=== PATIENT | female | born 1945 | race Caucasian/White ===

== ENCOUNTER 2016-12-19 01:21 | Inpatient (IN) | payer MEDICARE, OTHER ==
[2016-12-19] MEDS ORDERED: PIPERACILLIN-TAZOBACTAM 3.375 GM in DEXTROSE/WATER 1 50ML.BAG IVPB STA (01:45)
[2016-12-19 02:15] LABS: Anisocytosis Slight; Appearance,Urine Cloudy (Clear); Bacteria,Urine Occasional /hpf; Bilirubin,Urine Negative (Negative); CH 28.9; CHCM 30.9; Glucose,Urine (UA) Negative (Negative); HCT 40.3 % (34.0-46.0); HDW 2.72; HGB 12.3 gm/dL (11.4-16.0); Hypochromasia Moderate; Ketones,Urine Negative (Negative); Leukocyte Esterase,Urine Large (Negative); MCH 28.6 pg (25.0-35.0); MCHC 30.6 g/dL (31.0-37.0); MCV 93.7 fL (80.0-100.0); Mean Platelet Volume 7.2; Mucus,Urine Rare /hpf; Nitrite,Urine Negative (Negative); Particle Count 9802; Protein,Urine Negative (Negative); RBC,Urine 1 /hpf (0-5); RDW 16.8 % (11.5-15.5); Specific Gravity,Urine 1.014 (1.001-1.035); Squamous Epithelial Cell,Urine 1 /hpf (0-4); UA Billing (MACRO vs. MICRO) MICRO; Urobilinogen,Urine <2.0 mg/dL (<2.0); WBC,Urine 17 /hpf (0-5)
[2016-12-19 02:18] LABS: WBC 30.2 k/uL (3.8-10.6)
[2016-12-19 02:19] LABS: Calcium 8.8 mg/dL (8.4-10.2); Potassium 4.5 mmol/L (3.5-5.1); Total Bilirubin 0.4 mg/dL (0.2-1.3); Total Protein 4.5 g/dL (6.3-8.2)
[2016-12-19 02:22] LABS: INR 1.5 (<1.1); Partial Thromboplastin Time 34.3 sec (22.0-30.0); Prothrombin Time 14.4 sec (9.0-12.0)
[2016-12-19] MEDS: SODIUM CHLORIDE 0.9% 500 ML IV SCH ×2 (02:35→07:56)
[2016-12-19 02:40] LABS: Add Differential Manual Differential
[2016-12-19 02:41] LABS: Manual Review Performed; Nucleated Red Blood Cells 0 /100 WBC (0-0); Total Cells Counted 100
--- NOTE | 2016-12-19 02:43 | XR ---
EXAM: XR Chest, 1 View. CLINICAL HISTORY: Reason: Fever TECHNIQUE: Frontal view of the chest. COMPARISON: Chest x-ray 06/26/2016. FINDINGS: Lungs: Right infrahilar opacity; differential includes prominent vessels, pneumonia, and atelectasis. Low lung volumes. Pleural space: Unremarkable. No pneumothorax. Heart: Unremarkable. No cardiomegaly. Mediastinum: Unremarkable. Bones/joints: Osteopenia. Tubes, lines and devices: Redemonstrated Port-A-Cath with tortuous course of the catheter and terminating in the SVC. IMPRESSION: 1. Right infrahilar opacity; differential includes prominent vessels, pneumonia, and atelectasis. 2. Low lung volumes. 3. Redemonstrated Port-A-Cath with tortuous course of the catheter and terminating in the SVC.
[2016-12-19] MEDS ORDERED: SODIUM CHLORIDE 0.9% 1,000 ML IV ONE ×2 (03:07)
[2016-12-19] MEDS ORDERED: LEVOFLOXACIN 750MG-D5W PMX 750 MG in DEXTROSE/WATER 1 150ML.BAG IVPB SCH (06:45)
[2016-12-19 07:45] VITALS: BMI 39.0
--- NOTE | 2016-12-19 08:44 | ED ---
Altered Mental Status HPI - General Chief Complaint: Altered Mental Status Stated Complaint: Confusion Time Seen by Provider: 12/19/16 01:30 Source: old records reviewed Mode of arrival: EMS Limitations: altered mental status - History of Present Illness Initial Comments: This patient is a 71-year-old woman sent from long term because she has her reportedly become less oriented and less responsive. The symptoms been going on over the past night or so. They report that the patient is usually oriented to person and place, however the course of tonight she was not able to answer questions and she was only oriented to person. detention staff also noted that the patient has increased erythema to her left leg extending up towards her pelvis. The patient appears to be demented or delirious and not able to give much history. She does answer no when asked if she is having any pain or difficulty breathing. MD Complaint: altered mental status Onset/Timin -: days(s) Severity: moderate Consistency of Symptoms: getting worse Context: history of similar presentation Associated Symptoms: rash - Related Data Home Medications Medication Instructions Recorded Confirmed Omeprazole [PriLOSEC] 20 mg PO DAILY 11/06/14 12/19/16 Multivitamins, Thera [Multivitamin 1 tab PO HS 03/13/15 12/19/16 (formulary)] Acetaminophen [Tylenol] 650 mg PO Q4H PRN 04/22/15 12/19/16 Rivaroxaban [Xarelto] 15 mg PO W/SUPPER 06/03/15 12/19/16 Artificial Tears-Hypromellose 1 drops BOTH EYES TID PRN 09/15/15 12/19/16 [Artificial Tear Drops] Citalopram Hydrobromide [CeleXA] 20 mg PO DAILY 01/31/16 12/19/16 Folic Acid 1 mg PO HS 01/31/16 12/19/16 Furosemide [Lasix] 40 mg PO DAILY 01/31/16 12/19/16 Midodrine HCl [ProAmatine] 5 mg PO DAILY 01/31/16 12/19/16 Sucralfate [Carafate] 1 gm PO [facility] 01/31/16 12/19/16 Levothyroxine Sodium [Synthroid] 175 mcg PO DAILY 02/26/16 12/19/16 Allopurinol [Zyloprim] 300 mg PO DAILY 06/26/16 12/19/16 Calcitriol [Rocaltrol] 0.25 mcg PO SA 06/26/16 12/19/16 Ergocalciferol [Vitamin D2 50,000 unit PO WE 06/26/16 12/19/16 (DRISDOL)] Ferrous Sulfate [Iron (65 MG 325 mg PO TID 06/26/16 12/19/16 Elemental)] Magnesium Oxide [Mag-Ox] 400 mg PO HS 06/26/16 12/19/16 Benzonatate [Tessalon Perles] 100 mg PO Q8H PRN 12/19/16 12/19/16 Fluticasone Nasal [place] [Flonase 1 spr EA NOSTRIL DAILY 12/19/16 12/19/16 Nasal [place]] Lactulose 20 gm PO HS 12/19/16 12/19/16 Menthol [Biofreeze] 1 applic TOPICAL TID 12/19/16 12/19/16 Sennosides [Senna] 17.2 mg PO HS 12/19/16 12/19/16 prednisoLONE ACETATE [Pred Forte 1 drop RIGHT EYE DAILY 12/19/16 12/19/16 1%] Previous Rx's Medication Instructions Recorded Cephalexin [Keflex] 500 mg PO Q8HR #30 cap 12/23/16 Nystatin 100,000 Unit/ml Susp 50,000,000 units PO QID #0 12/23/16 [Mycostatin Oral Susp] Allergies Allergy/AdvReac Type Severity Reaction Status Date / Time vancomycin Allergy Anaphylaxis Verified 12/19/16 06:59 Review of Systems ROS Statement: Those systems with pertinent positive or pertinent negative responses have been documented in the HPI. ROS Other: All systems not noted in ROS Statement are negative. Limitations: ROS unobtainable due to patients medical condition Past Medical History Past Medical History: Atrial Fibrillation, Chest Pain / Angina, Dementia, Eye Disorder, GERD/Reflux, Osteoarthritis (OA), Renal Disease, Thyroid Disorder, Vascular Disorder Additional Past Medical History / Comment(s): Chronic atrial fibrillation, dementia, osteoarthritis, chronic hypercapnic respiratory failure, morbid obesity, chronic lymphedema of the lower extremities with recurrent episodes of cellulitis, previous history of C. diff colitis, congestion heart failure, peripheral vascular disease, chronic hypotension, recurrent urine checked infections, osteoarthritis, the patient has a right-sided Mediport, paroxysmal atrial fibrillation, previous urine checked infection including infections with enterococcus, pseudomonas, Morganella morganii, E. coli, VRE. 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 History of Any Multi-Drug Resistant Organisms: MRSA, VRE Date of last positivie culture/infection: 12/03/2014-VRE; 09/28/2012-MRSA MDRO Source:: Urine-VRE; Abd Wound-MRSA Past Surgical History: Appendectomy, Back Surgery, Tonsillectomy Additional Past Surgical History / Comment(s): back surgery with laminectomy 2 , umbilical hernia repair in September 2012 followed by cellulitis and nonhealing wounds to the area, mediport R chest. Past Anesthesia/Blood Transfusion Reactions: No Reported Reaction Past Psychological History: Depression Additional Psychological History / Comment(s): This patient is . She is currently at the [facility]. She has a legal preetiAnahi Ashbyo [phone]. She gets up into a wheelchair with assistance. She needs assist with ADLs. She feeds herself. She has one son and one [id number] both they live in [place]. No travel hx, no pets, no service. Smoking Status: Never smoker Past Alcohol Use History: None Reported Additional Past Alcohol Use History / Comment(s): Patient is a lifelong nonsmoker. She denies any alcohol use or abuse. Past Drug Use History: None Reported - Past Family History Son(s) Family Medical History: Cancer Additional Family Medical History / Comment(s): Pt states her son has pelvic cancer with mets. Father History Unknown: Yes Family Medical History: Coronary Artery Disease (CAD) Additional Family Medical History / Comment(s): Father at 93 yrs of age. Mother History Unknown: Yes Family Medical History: Respiratory Disorder Additional Family Medical History / Comment(s): Mother in her 80's of a rare lung dx. General Exam Limitations: altered mental status General appearance: alert, obese Head exam: Present: atraumatic, normocephalic Eye exam: Present: normal appearance ENT exam: Present: mucous membranes dry Neck exam: Present: normal inspection Respiratory exam: Present: rhonchi. Absent: respiratory distress, wheezes, rales, stridor, chest wall tenderness Cardiovascular Exam: Present: regular rate, normal rhythm, normal heart sounds. Absent: systolic murmur, diastolic murmur, rubs, gallop GI/Abdominal exam: Present: soft. Absent: distended, tenderness, guarding, rebound, mass, pulsatile mass, hernia Extremities exam: Present: normal capillary refill, pedal edema, other (There is erythema and warmth throughout the left leg extending up to the abdominal wall on the left side.). Absent: normal inspection, calf tenderness Back exam: Present: normal inspection Neurological exam: Present: alert, other (Patient is able to only perform simple one step commands, no focalizing neurologic deficit). Absent: oriented X3 (Patient is oriented only to person), motor sensory deficit Skin exam: Present: warm, dry, intact, erythema. Absent: rash Course Vital Signs 12/19/16 12/19/16 12/19/16 01:25 03:23 04:55 Temperature 97.7 F 96.7 F L Pulse Rate 97 83 75 Pulse Rate [ Pulse Oximetery ] Respiratory 18 24 20 Rate Blood Pressure 108/57 94/53 99/56 Blood Pressure [Right Arm] O2 Sat by Pulse 99 97 97 Oximetry 12/19/16 12/19/16 12/19/16 06:54 07:10 07:20 Temperature 99.3 F 97.1 F L Pulse Rate 75 Pulse Rate [ 77 Pulse Oximetery ] Respiratory 20 17 Rate Blood Pressure 110/58 Blood Pressure 101/57 [Right Arm] O2 Sat by Pulse 96 98 Oximetry Medical Decision Making - Medical Decision Making Patient is 71-year-old woman sent from long term to be evaluated for mental status change. She does appear to have extensive left leg cellulitis, possibly sepsis as well with lactic acid elevated. Patient received fluid bolus and started on antibiotics. She does list a vancomycin ALLERGY. Patient be admitted case discussed with hospitalist and will have ID consult. The review of her previous cultures reveals that she has had previous E. Faecalis that should be susceptible to the initial antibiotic choice of Zosyn. - Lab Data Result diagrams: 12/22/16 10:17 12/22/16 10:17 Lab Results 12/19/16 12/19/16 12/19/16 Range/Units 02:00 02:00 02:00 WBC 30.2 H* (3.8-10.6) k/uL RBC 4.30 (3.80-5.40) m/uL Hgb 12.3 (11.4-16.0) gm/dL Hct 40.3 (34.0-46.0) % MCV 93.7 (80.0-100.0) fL MCH 28.6 (25.0-35.0) pg MCHC 30.6 L (31.0-37.0) g/dL RDW 16.8 H (11.5-15.5) % Plt Count 305 (150-450) k/uL Neutrophils % (Manual) 96.0 % Band Neutrophils % 1.0 % Lymphocytes % (Manual) 1.0 % Monocytes % (Manual) 2.0 % Neutrophils # (Manual) 29.3 H (1.3-7.7) k/uL Lymphocytes # (Manual) 0.3 L (1.0-4.8) k/uL Monocytes # (Manual) 0.6 (0-1.0) k/uL Nucleated RBCs 0 (0-0) /100 WBC Manual Slide Review Performed Hypochromasia Moderate Poikilocytosis (manual Present Anisocytosis Slight PT (9.0-12.0) sec INR (<1.1) APTT (22.0-30.0) sec Sodium 133 L (137-145) mmol/L Potassium 4.5 (3.5-5.1) mmol/L Chloride 101 (98-107) mmol/L Carbon Dioxide 21 L (22-30) mmol/L Anion Gap 11 mmol/L BUN 91 H* (7-17) mg/dL Creatinine 1.20 H (0.52-1.04) mg/dL Est GFR (MDRD) Af Amer 54 (>60 ml/min/1.73 sqM) Est GFR (MDRD) Non-Af 44 (>60 ml/min/1.73 sqM) Glucose 208 H (74-99) mg/dL Plasma Lactic Acid Deandre 4.1 H* (0.7-2.0) mmol/L Calcium 8.8 (8.4-10.2) mg/dL Total Bilirubin 0.4 (0.2-1.3) mg/dL AST 15 (14-36) U/L ALT 25 (9-52) U/L Alkaline Phosphatase 97 (38-126) U/L Troponin I (0.000-0.034) ng/mL Total Protein 4.5 L (6.3-8.2) g/dL Albumin 2.1 L (3.5-5.0) g/dL Cortisol 12 ug/dL Urine Color Urine Appearance (Clear) Urine pH (5.0-8.0) Ur Specific [place] (1.001-1.035) Urine Protein (Negative) Urine Glucose (UA) (Negative) Urine Ketones (Negative) Urine Blood (Negative) Urine Nitrite (Negative) Urine Bilirubin (Negative) Urine Urobilinogen (<2.0) mg/dL Ur Leukocyte Esterase (Negative) Urine RBC (0-5) /hpf Urine WBC (0-5) /hpf Ur Squamous Epith Cells (0-4) /hpf Urine Bacteria (None) /hpf Hyaline Casts (0-2) /lpf Urine Mucus (None) /hpf 12/19/16 12/19/16 12/19/16 Range/Units 02:00 02:00 02:00 WBC (3.8-10.6) k/uL RBC (3.80-5.40) m/uL Hgb (11.4-16.0) gm/dL Hct (34.0-46.0) % MCV (80.0-100.0) fL MCH (25.0-35.0) pg MCHC (31.0-37.0) g/dL RDW (11.5-15.5) % Plt Count (150-450) k/uL Neutrophils % (Manual) % Band Neutrophils % % Lymphocytes % (Manual) % Monocytes % (Manual) % Neutrophils # (Manual) (1.3-7.7) k/uL Lymphocytes # (Manual) (1.0-4.8) k/uL Monocytes # (Manual) (0-1.0) k/uL Nucleated RBCs (0-0) /100 WBC Manual Slide Review Hypochromasia Poikilocytosis (manual Anisocytosis PT 14.4 H (9.0-12.0) sec INR 1.5 (<1.1) APTT 34.3 H (22.0-30.0) sec Sodium (137-145) mmol/L Potassium (3.5-5.1) mmol/L Chloride (98-107) mmol/L Carbon Dioxide (22-30) mmol/L Anion Gap mmol/L BUN (7-17) mg/dL Creatinine (0.52-1.04) mg/dL Est GFR (MDRD) Af Amer (>60 ml/min/1.73 sqM) Est GFR (MDRD) Non-Af (>60 ml/min/1.73 sqM) Glucose (74-99) mg/dL Plasma Lactic Acid Deandre (0.7-2.0) mmol/L Calcium (8.4-10.2) mg/dL Total Bilirubin (0.2-1.3) mg/dL AST (14-36) U/L ALT (9-52) U/L Alkaline Phosphatase (38-126) U/L Troponin I <0.012 (0.000-0.034) ng/mL Total Protein (6.3-8.2) g/dL Albumin (3.5-5.0) g/dL Cortisol ug/dL Urine Color Yellow Urine Appearance Cloudy H (Clear) Urine pH 5.0 (5.0-8.0) Ur Specific [place] 1.014 (1.001-1.035) Urine Protein Negative (Negative) Urine Glucose (UA) Negative (Negative) Urine Ketones Negative (Negative) Urine Blood Negative (Negative) Urine Nitrite Negative (Negative) Urine Bilirubin Negative (Negative) Urine Urobilinogen <2.0 (<2.0) mg/dL Ur Leukocyte Esterase Large H (Negative) Urine RBC 1 (0-5) /hpf Urine WBC 17 H (0-5) /hpf Ur Squamous Epith Cells 1 (0-4) /hpf Urine Bacteria Occasional H (None) /hpf Hyaline Casts 9 H (0-2) /lpf Urine Mucus Rare H (None) /hpf - EKG Data EKG shows normal: sinus rhythm, axis (Normal), intervals Rate: normal Interpretation: other (The patient does have what appears to be inferior J- point elevation, which is seen on previous EKGs) Disposition Clinical Impression: Cellulitis, leg, Sepsis syndrome, Lactic acidemia Disposition: ADMITTED IP TO [facility] Condition: Critical
[2016-12-19] MEDS: FAMOTIDINE 20 MG/2 ML VIAL IV SCH ×2 (08:47→20:44)
[2016-12-19] MEDS ORDERED: HEPARIN SODIUM,PORCINE 5,000 UNIT/ML 1 ML VIAL SQ SCH (09:00)
[2016-12-19] MEDS ORDERED: MEROPENEM 1 GM in SODIUM CHLORIDE 0.9% 100 ML IVPB SCH (09:00)
[2016-12-19] MEDS ORDERED: IV VANCOMYCIN PER PHARMACY 1 EACH MISC MISCELLANE PRN (11:52)
[2016-12-19] MEDS ORDERED: BISACODYL 10 MG SUPP RECTAL PRN (11:53)
[2016-12-19] MEDS ORDERED: ACETAMINOPHEN TAB 325 MG TAB PO PRN (11:53)
[2016-12-19] MEDS ORDERED: BENZONATATE 100 MG CAP PO PRN (11:53)
[2016-12-19] MEDS ORDERED: ARTIFICIAL TEARS-HYPROMELLOSE DROPS 15 ML BTL BOTH EYES PRN (11:53)
[2016-12-19] MEDS: SUCRALFATE 1 GM TAB PO SCH ×3 (12:52→20:38)
[2016-12-19] MEDS: NYSTATIN 100,000 UNIT/ML SUSP 500,000 UNIT/5 ML CUP PO SCH ×3 (12:52→20:39)
[2016-12-19] MEDS: SODIUM CHLORIDE 0.9% 1,000 ML IV SCH ×2 (12:54→20:37)
[2016-12-19] MEDS ORDERED: DAPTOmycin 500 MG in SODIUM CHLORIDE 0.9% 50 ML IV SCH (13:00)
--- NOTE | 2016-12-19 14:08 | HP ---
DATE OF ADMISSION: 12/19/2016 Patient is a 71-year-old female who was sent in here because of altered mental status. Patient was found to have leukocytosis, sepsis and patient denied any UTI-like symptoms. The patient denied any cough, or runny nose. Chest x-ray did not show any pneumonic process. UA is a bit abnormal. The patient has a VRE in the past. The patient on exam was found to have extensive lymphedema and cellulitis of the left lower extremity extending up to the groin area with localized of temperature and increased redness and patient is ALLERGIC TO VANCOMYCIN. Patient was started on Meropenem for previous history of VRE although UTI as a source of infection cannot be ruled out. Patient does not have any Grey catheter. Patient does not have any significant skin breakdowns contributed to her infection at this point of time. The source of infection is either UTI or a left lower limb cellulitis because of which patient was started on daptomycin for cellulitis as she is ALLERGIC TO VANCOMYCIN. Meropenem for her history in the past with UTI. Patient has multiple medical problems and the patient's baseline creatinine is around 0.7 or around 1.2. Patient is on Lasix, probably for lymphedema and the patient has lactic acidosis and severe sepsis. Lactic was improving. Patient was started on IV fluids at 100 mL per hour by me. REVIEW OF SYSTEMS: CONSTITUTIONAL: No fever, no malaise, no fatigue. HEENT: No recent visual problems or hearing problems. Denied any sore throat. CARDIOVASCULAR: No chest pain, orthopnea, PND, no palpitations, no syncope. PULMONARY: No shortness of breath, no cough, no hemoptysis. GASTROINTESTINAL: No diarrhea, no nausea, no vomiting, no abdominal pain. Normoactive bowel sounds. NEUROLOGICAL: As described in HPI. HEMATOLOGICAL: Denies any bleeding or petechiae. GENITOURINARY: Denies any burning micturition, frequency, or urgency. MUSCULOSKELETAL/RHEUMATOLOGICAL: As described in HPI. ENDOCRINE: Denies any polyuria or polydipsia. The rest of the 14 point review of systems is negative. PAST MEDICAL HISTORY: The patient has an extensive history. Home medications: 1. Omeprazole. 2. Acetaminophen. 3. Rivaroxaban. 4. Artificial tears. 5. Mylanta. 6. Bisacodyl. 7. Escitalopram. 8. Folic acid. 9. Lasix. 10. ( ). 11. Levothyroxine. 12. Allopurinol. 13. Calcitriol. 14. Cholecalciferol. 15. Ferrous sulfate. 16. Magnesium oxide. 17. ( ). 18. ( ) that is Tessalon Perles. 19. Fluticasone. 20. Lactulose. 21. ( ). 22. Nystatin. 23. Senna. 24. Guaifenesin. 25. Prednisone. 26. Eye drops. 27. Hydrocodone/acetaminophen. PAST MEDICAL HISTORY: Significant for atrial fibrillation in the past, angina, history of dementia, gastroesophageal reflux disease, osteoarthritis, chronic lymphedema. PAST SURGICAL HISTORY: Back surgery, laminectomy and tonsillectomy, umbilical hernia repair. FAMILY HISTORY: Significant for cancer in her son. PHYSICAL EXAMINATION: VITAL SIGNS: Temperature 97.5, pulse of 76, respiratory rate of 18, blood pressure 91/56, saturating at 96% on room air. GENERAL: Obese. Alert and oriented times three. HEENT: Pupils are round and equally reacting to light. EOMI. No scleral icterus. No conjunctival pallor. Normocephalic, atraumatic. No pharyngeal erythema. No thyromegaly. CARDIOVASCULAR: S1 and S2 present. No murmurs, rubs, or gallops. PULMONARY: Chest is clear to auscultation, no wheezing or crackles. ABDOMEN: Soft, nontender, nondistended, normoactive bowel sounds. No palpable organomegaly. MUSCULOSKELETAL: No joint swelling or deformity. EXTREMITIES: Left lower extremity as described in the history itself. NEUROLOGICAL: Gross neurological examination did not reveal any focal deficits. SKIN: No rashes. LABORATORY DATA: CBC and BMP are abnormal for elevated WBC count of 30,000. Patient does not have any diarrhea and INR is 1.5. The patient is on Xarelto. Sodium is 133, bicarbonate of 21, BUN of 91, creatinine 1.2. Lactic acid has come down from 4.1 to 2.8. UA large leukocyte esterace and 17 WBC. ASSESSMENT AND PLAN: 1. Sepsis possible source is being urinary tract infection, which cannot be ruled out as a source most probably cellulitis of the left lower extremity. Patient is on Meropenem and daptomycin because of above-mentioned reasons and infectious disease was consulted. 2. Leukocytosis secondary to severe sepsis. Patient is getting IV fluids and lactic acid as he is coming down. 3. Hyponatremia, hypovolemic hyponatremia. Patient was started on IV fluids. 4. Acute renal failure prerenal azotemia from congestive heart failure. 5. Chronic lymphedema of left lower extremity. 6. Peripheral vascular disease. 7. The patient does have history of Clostridium difficile in the past. 8. Morbid obesity. 9. Hypothyroidism. 10. Restless leg syndrome and gout. 11 Toxic encephalopathy due to sepsis For above rest of the above mentioned chronic medical problems, I will go ahead and continue her home medications. MTDD
[2016-12-19] MEDS: RIVAROXABAN 15 MG TAB PO SCH (17:17)
[2016-12-19] MEDS: FERROUS SULFATE 325 MG TAB PO SCH ×2 (17:17→20:39)
[2016-12-19] MEDS: SENNOSIDES 8.6 MG TAB PO SCH (20:38)
[2016-12-19] MEDS: PIPERACILLIN-TAZOBACTAM 3.375 GM in DEXTROSE/WATER 1 50ML.BAG IVPB SCH (22:52)
[2016-12-20] MEDS: SODIUM CHLORIDE 0.9% 1,000 ML IV SCH ×2 (06:18→16:15)
[2016-12-20] MEDS: LEVOTHYROXINE 75 MCG TAB PO SCH (06:31)
[2016-12-20] MEDS: LEVOTHYROXINE 100 MCG TAB PO SCH (06:31)
[2016-12-20] MEDS: SUCRALFATE 1 GM TAB PO SCH ×4 (06:31→21:31)
[2016-12-20] MEDS: PANTOPRAZOLE 40 MG TABLET PO SCH (06:31)
[2016-12-20 06:45] LABS: Anisocytosis Slight; CHCM 30.9; HCT 32.6 % (34.0-46.0); HDW 2.83; HGB 10.4 gm/dL (11.4-16.0); Hypochromasia Moderate; MCH 29.9 pg (25.0-35.0); MCHC 31.8 g/dL (31.0-37.0); Mean Platelet Volume 6.9; RBC 3.46 m/uL (3.80-5.40); RDW 16.7 % (11.5-15.5); WBC 20.5 k/uL (3.8-10.6)
[2016-12-20 07:15] LABS: ALT 29 U/L (9-52); AST 13 U/L (14-36); Alkaline Phosphatase 92 U/L (38-126); Anion Gap 6 mmol/L; Blood Urea Nitrogen 65 mg/dL (7-17); Carbon Dioxide 22 mmol/L (22-30); Chloride 108 mmol/L (98-107); Glucose 114 mg/dL (74-99); Non-African American GFR(MDRD) 56 (>60 ml/min/1.73 sqM); Potassium 4.2 mmol/L (3.5-5.1); Sodium 136 mmol/L (137-145); Total Bilirubin 0.3 mg/dL (0.2-1.3); Total Protein 3.8 g/dL (6.3-8.2)
[2016-12-20] MEDS: FLUTICASONE 50MCG/SPRAY NASAL 16GM EA NOSTRIL SCH (08:20)
[2016-12-20] MEDS: predniSONE 20 MG TAB PO SCH (08:20)
[2016-12-20] MEDS: CITALOPRAM HYDROBROMIDE 20 MG TAB PO SCH (08:20)
[2016-12-20] MEDS: NYSTATIN 100,000 UNIT/ML SUSP 500,000 UNIT/5 ML CUP PO SCH ×4 (08:20→21:32)
[2016-12-20] MEDS: FERROUS SULFATE 325 MG TAB PO SCH ×3 (08:20→21:31)
[2016-12-20] MEDS: ALLOPURINOL 300 MG TAB PO SCH (08:20)
[2016-12-20] MEDS: PIPERACILLIN-TAZOBACTAM 3.375 GM in DEXTROSE/WATER 1 50ML.BAG IVPB SCH ×3 (08:27→23:33)
--- NOTE | 2016-12-20 10:06 | CONS ---
DATE OF CONSULTATION: 12/19/2016. REASON FOR CONSULTATION: Leukocytosis and sepsis. HISTORY OF PRESENT ILLNESS: The patient is 71 -year-old female who is a halfway resident. The patient has been brought into the [facility] ER with chief complaints of patient being less oriented and less responsive. Apparently her symptoms started overnight. No history of any nausea, no vomiting or any high-grade fever. Apparently the halfway staff also noted the left leg to be getting more swollen and red in a patient who has significant pain to that left leg area. There is no skin breakdown. There is no drainage. Subsequently, the patient has been brought into the [facility] ER where the patient was noticed to have elevated white count of 30,000. The patient has been started on broad spectrum antibiotic in the form of daptomycin and Meropenem and ID was consulted for further recommendation of antibiotic therapy. The patient did have slightly positive urinalysis, however, the patient did not have any Grey catheter and did not have significant burning or frequency of urine. The patient was getting more awake, alert at the time of my evaluation early this afternoon. REVIEW OF SYSTEMS: Positive for weakness. No high grade fevers. EYES: No complaint. ENT: No complaint. RESPIRATORY: No complaint. CARDIOVASCULAR: No complaint. GENITOURINARY: As per HPI. GASTROINTESTINAL: No complaint. MUSCULOSKELETAL: No complaint. INTEGUMENTARY: As per HPI. PSYCHOLOGICAL: No complaint. ENDOCRINE: No complaint. NEUROLOGIC: No complaint. Past medical history significant for atrial fibrillation, dementia, gastroesophageal reflux disease, renal insufficiency, hypothyroidism, history of C. dif colitis, chronic atrial fibrillation, lower extremity cellulitis and sepsis. Previous history of MRSA and VRE infection. PAST SURGICAL HISTORY: Appendectomy, back surgery and tonsillectomy, umbilical hernia repair. SOCIAL HISTORY: No history of smoking, drinking or drug use. Currently resident of a halfway. FAMILY HISTORY: Father with history of coronary artery disease. Mother with history of disorder. ALLERGIES: VANCOMYCIN. Medications currently include the patient is on: 1. Daptomycin. 2. Meropenem. 3. Tylenol. 4. Zyloprim. 5. Tessalon Perles. 6. Dulcolax. 7. Celexa. 8. Iron sulfate. 9. Synthroid. 10. Prednisone. 11. Xarelto. 12. Senokot. 13. Sucralfate. On examination, blood pressure is 94/56 with a pulse of 85, temperature 97.7. She is 99% on room air. General description is an elderly female, lying in bed in no distress. No tachypnea or accessory muscle of respiration use. HEENT examination shows no pallor or scleral icterus. Oral mucous membranes dry. NECK: Trachea central. There is no thyromegaly. LUNGS: Unlabored breathing. Clear to auscultation anteriorly. No wheeze or crackles. HEART: S1, S2. Regular rate and rhythm. ABDOMEN: Soft. No tenderness. EXTREMITIES: Left leg seems to be slightly more swollen and red and no skin breakdown. No drainage. NEUROLOGICAL: The patient is awake, alert and oriented times three. Mood and affect normal. LABS: Hemoglobin is 12.8, white count 30.2 with a BUN of 21, creatinine 1.20. Liver enzymes are normal. Urine did show large leukocyte esterase with 17 WBC. Cultures were obtained, currently pending. DIAGNOSTIC IMPRESSION AND PLAN: Patient with admission to hospital with mental status changes and weakness which could be more likely metabolic with a complaint of dehydration. However, the patient did have an elevated white count. Source is more likely left lower extremity cellulitis with diffuse swelling and redness more likely streptococcal disease. No evidence of any skin breakdown. No drainage. The patient does have a positive urinalysis. However, denies significant urinary symptoms with a question of possible asymptomatic bacteruria though the patient has grown multiple resistant pathogens in her urine and also has been pseudomonas that was sensitive to Zosyn. PLAN: 1. Discontinue the daptomycin and Meropenem. 2. Will start patient on Zosyn that should cover both the cellulitis as well as possible urinary tract infection. 3. Recommend Prateek wrap from just above the toe to below the knee. 4. Will follow up on the clinical condition and cultures to further adjust the medication if needed. Thank you for this consultation. We will follow this patient along with you. MICHAEL
--- NOTE | 2016-12-20 16:00 | P.PN ---
Subjective Date of service 12/20/2016. Progress note being dictated for Dr. Fernandez> Interval history: This a 71-year-old female resident of [facility] admitted with sepsis, possibly related to UTI, probably cellulitis of left lower extremity. Maintained on Zosyn as per infectious disease. Alert, conversing, answering simple questions. Receiving IV fluid hydration for hypovolemia ,sodium up to 136, renal function improving. Good diet intake, positive bowel movement this morning. Denies nausea or vomiting. Maintaining MAP of 61 is 64. Denies chest pain, or palpitations. Denies increase in shortness of breath. Afebrile. Hemoglobin 10.4. Objective - Vital Signs Vital signs: Vital Signs Temp 97.5 F L 12/20/16 12:14 Pulse 77 12/20/16 12:14 Resp 18 12/20/16 12:14 BP 94/50 12/20/16 12:14 Pulse Ox 94 L 12/20/16 12:14 Intake & Output 12/19/16 12/20/16 12/20/16 18:59 06:59 18:59 Intake Total 1160 1700 Balance 1160 1700 Weight 90.7 kg Intake: Intake, IV Titration 800 1700 Amount DAPTOmycin 500 mg In 50 Sodium Chloride 0.9% 50 ml @ 100 mls/hr IV Q24H [facility] Rx#:[id number] Levofloxacin 750Mg-D5w 150 Pmx 750 mg In Dextrose/ Water 1 150ml.bag @ 100 mls/hr IVPB Q24H [facility] Rx#: [id number] Meropenem 1 gm In Sodium 100 Chloride 0.9% 100 ml @ 200 mls/hr IVPB Q12HR [facility] Rx#:[id number] Piperacillin-Tazobactam 3 50 .375 gm In Dextrose/Water 1 50ml.bag @ 12.5 mls/hr IVPB Q8HR [facility] Rx#: [id number] Sodium Chloride 0.9% 1, 500 1650 000 ml @ 100 mls/hr IV . Q10H [facility] Rx#:[id number] Oral 360 Other: # Voids 2 1 # Bowel Movements 1 - Exam PHYSICAL EXAM: VITAL SIGNS: As above GENERAL: [Sitting up in bed, no acute distress] HEENT: [Pupils equal conjunctiva normal. No conjunctival pallor. Mucosa moist] NECK: [Supple, no JVD] RESPIRATORY EFFORT:[Normal] LUNGS: [Clear to auscultation, bilateral bases diminished, no wheezing crackles or rhonchi] CARDIOVASCULAR[regular S1 and S2, no murmurs rubs or gallops, positive edema] GI: [Abdomen soft, nontender, positive bowel sounds.] PSYCH: [Alert and oriented -3, mood and affect normal.] SKIN: Left lower extremity intact, diffuse edema,erythema, without drainage, NEURO: [Gross neurological examination does not reveal any focal deficits] Microbiology 12/19/16 02:00 Urine,Catheterized Urine Culture - Preliminary Gram Neg Bacilli 12/19/16 02:00 Blood Blood Culture - Preliminary No Growth after 24 hours - Labs CBC & Chem 7: 12/20/16 06:12 12/20/16 06:12 Labs: Abnormal Lab Results - Last 24 Hours (Table) 12/20/16 12/20/16 Range/Units 06:12 06:12 WBC 20.5 H (3.8-10.6) k/uL RBC 3.46 L (3.80-5.40) m/uL Hgb 10.4 L (11.4-16.0) gm/dL Hct 32.6 L (34.0-46.0) % RDW 16.7 H (11.5-15.5) % Sodium 136 L (137-145) mmol/L Chloride 108 H (98-107) mmol/L BUN 65 H (7-17) mg/dL Glucose 114 H (74-99) mg/dL Calcium 8.0 L (8.4-10.2) mg/dL AST 13 L (14-36) U/L Total Protein 3.8 L (6.3-8.2) g/dL Albumin 1.6 L (3.5-5.0) g/dL Assessment and Plan Plan: 1. Sepsis, possibly related to UTI, probably related to cellulitis of the left lower extremity 2. Leukocytosis secondary to severe sepsis. 3. Acute renal failure, prerenal azotemia from CHF 4. Hypovolemic hyponatremia, improving 5. Peripheral vascular disease 6. History of C. difficile 7. Morbid obesity, BMI 39.1 8. Hypothyroidism 9. Restless leg syndrome and gout 10. Chronic lymphedema of the left lower extremity Plan: Continue on current medication regime, IV fluid hydration, Zosyn, monitoring and symptomatic treatment. Monitor cultures closely with antibiotics as per infectious disease. Close monitoring of electrolytes, CBC with repeat labs ordered for a.m. Further recommendations to follow. The impression and plan of care has been dictated as directed. : I performed a H&P examination of this patient and discussed the same with the dictator. I agree with the dictator's note. Any additional findings/opinions/ etc. will be noted.
--- NOTE | 2016-12-20 16:42 | CDI ---
Naresh Bonifay [address] [place] [address] ~~~~~~~~~~~~~~~~~~~~~~~~~~~~~~~~~~~~~~~~~~~~~~~~~~~~~~~~~~~ Documentation Clarification Form Date: 12/20/2016 From: Darleen Talley RN/CDI Admit Date: 12/19/2016 Patient Name: Rebekah Hardin Visit Number: [id number] Dr. Ira Fernandez MD Altered mental status was documented in the Emergency Department notes. Patient history/risk factors: Chronic Atrial Fibrillation, Dementia, Peripheral vascular disease, CHF, Clinical Indicators: From ECF noted to be less oriented and less responsive. Left leg swelling and pain. Neurological :Patient is able to only preform simple one step commands, no focalizing neurologic deficit. Patient is orientated only to person. Vital signs: 108 57 97 18 97.7 99 % RA Labs: WBC 30,2 Lactic acid 4.1, UA large Leukocyte Esterase, hyaline casts 9 Chest X Ray: Right infrahilar opacity, differential includes prominent vessels, pneumonia, and atelectasis ID Consult: Mental status changes and weakness which could be more likely metabolic with a complaint of dehydration. the source is more likely the left lower extremity cellulitis. Treatment: IV@ 100/HR, Zosyn IV Neurological assessment per protocol In your professional opinion, please clarify the etiology of the altered mental status, if known. Encephalopathy (specify Metabolic, Toxic, Other and Underlying Medical Illness) Delirium (specify cause): Dementia (if know, specify Type and if with/without Behavioral Disturbance) Other condition (please specify) Unable to determine Please document in your progress notes and discharge summary in order to capture severity of illness and risk of mortality. Include clinical findings that support your diagnosis. FYI: Press F11 to launch patient chart. Place X here if this finding has no clinical significance, is not applicable or if you are not able to provide any additional documentation. MTDD
[2016-12-20] MEDS: RIVAROXABAN 15 MG TAB PO SCH (17:23)
[2016-12-20] MEDS: SENNOSIDES 8.6 MG TAB PO SCH (21:32)
[2016-12-21] MEDS: SODIUM CHLORIDE 0.9% 1,000 ML IV SCH (03:22)
[2016-12-21] MEDS: LEVOTHYROXINE 75 MCG TAB PO SCH (06:27)
[2016-12-21] MEDS: LEVOTHYROXINE 100 MCG TAB PO SCH (06:28)
[2016-12-21] MEDS: SUCRALFATE 1 GM TAB PO SCH ×4 (06:30→22:00)
[2016-12-21] MEDS: PANTOPRAZOLE 40 MG TABLET PO SCH (06:30)
--- NOTE | 2016-12-21 07:25 | PN ---
DATE OF SERVICE: 12/20/2016 Reason for follow-up: Lower extremity cellulitis and a question of urinary tract infection. INTERVAL HISTORY: The patient is afebrile. She is feeling better. Breathing comfortably. Denies any significant chest pain, no cough and no abdominal pain. Legs remain to be swollen. On examination, blood pressure 95/51 with a pulse of 75, temperature 98. She is 94% on room air. General description is an elderly female, lying in bed in no distress. RESPIRATORY SYSTEM: Unlabored breathing. Clear to auscultation anteriorly. HEART: S1, S2. Regular rate and rhythm. ABDOMEN: Soft. No tenderness. LABS: Hemoglobin is 10.4, white count 20.5 with a BUN of 35, creatinine 0.98. Urine showing gram negative bacilli. DIAGNOSTIC IMPRESSION AND PLAN: Patient admitted to hospital with mental status changes and elevated white count with concern for left lower extremity cellulitis and a question of urinary tract infection. She is currently covered with Zosyn that will be continued with white count improved along jose l wrap to the left leg. Further adjust of antibiotic will be on basis of culture report. Continue supportive care. MICHAEL
[2016-12-21 07:38] LABS: Anisocytosis Slight; Basophils % (A) 0 %; CH 28.3; CHCM 29.1; Eosinophils % (A) 0 %; HCT 32.8 % (34.0-46.0); HDW 2.71; HGB 9.9 gm/dL (11.4-16.0); Hypochromasia Marked; Luc # (Auto) 0.09; Luc % (Auto) 1; Lymphocytes # (A) 0.3 k/uL (1.0-4.8); Lymphocytes % (A) 2 %; MCH 29.3 pg (25.0-35.0); MCV 97.6 fL (80.0-100.0); Macrocytosis Slight; Mean Platelet Volume 6.9; Monocytes # (A) 0.6 k/uL (0-1.0); Monocytes % (A) 4 %; Neutrophils # (A) 14.1 k/uL (1.3-7.7); Neutrophils % (A) 94 %; RBC 3.36 m/uL (3.80-5.40); RDW 16.7 % (11.5-15.5); WBC 15.1 k/uL (3.8-10.6); WBC (Perox) 15.56
[2016-12-21 08:00] LABS: Anion Gap 6 mmol/L; Blood Urea Nitrogen 46 mg/dL (7-17); Carbon Dioxide 20 mmol/L (22-30); Chloride 112 mmol/L (98-107); Glucose 180 mg/dL (74-99); Non-African American GFR(MDRD) 57 (>60 ml/min/1.73 sqM); Potassium 4.1 mmol/L (3.5-5.1); Sodium 138 mmol/L (137-145)
[2016-12-21] MEDS: PIPERACILLIN-TAZOBACTAM 3.375 GM in DEXTROSE/WATER 1 50ML.BAG IVPB SCH ×2 (08:50→16:19)
[2016-12-21] MEDS: predniSONE 20 MG TAB PO SCH (09:15)
[2016-12-21] MEDS: CITALOPRAM HYDROBROMIDE 20 MG TAB PO SCH (09:15)
[2016-12-21] MEDS: FLUTICASONE 50MCG/SPRAY NASAL 16GM EA NOSTRIL SCH (09:15)
[2016-12-21] MEDS: NYSTATIN 100,000 UNIT/ML SUSP 500,000 UNIT/5 ML CUP PO SCH ×4 (09:15→22:01)
[2016-12-21] MEDS: ALLOPURINOL 300 MG TAB PO SCH (09:16)
[2016-12-21] MEDS: FERROUS SULFATE 325 MG TAB PO SCH ×3 (11:59→22:01)
[2016-12-21] MEDS ORDERED: LACTATED RINGERS 1,000 ML IV SCH (12:00)
[2016-12-21 14:07] LABS: Appearance,Urine Clear (Clear); Bilirubin,Urine Negative (Negative); Glucose,Urine (UA) Negative (Negative); Ketones,Urine Negative (Negative); Leukocyte Esterase,Urine Negative (Negative); Nitrite,Urine Negative (Negative); PH, Urine 5.5 (5.0-8.0); Protein,Urine Negative (Negative); Specific Gravity,Urine 1.011 (1.001-1.035); UA Billing (MACRO vs. MICRO) CHEM; Urobilinogen,Urine <2.0 mg/dL (<2.0)
--- NOTE | 2016-12-21 15:14 | CDI ---
In responding to this query, please exercise your independent professional judgment. The [facility] Coding Staff and Clinical Documentation Specialists appreciate your assistance in clarifying documentation, maintaining compliance with coding guidelines, accurately documenting patients condition and capturing severity of illness. The fact that a question is asked does not imply that any particular answer is desired or expected. Communication forms are a method of clarifying documentation and are not made part of the Legal Health Record. Thank you in advance for your clarification. Last Revision, November 2015 Naresh Novoa [address] [facility] [place] [address] Documentation Clarification Form Date: 12/20/2016 4:12:00 PM From: Darleen Talley Admit Date: 12/19/2016 6:40:00 AM Patient Name: Rebekah Hardin I Visit Number: [id number] Discharge Date: Dr. Ira Fernandez/Renita GO Altered mental status was documented in the Emergency Department notes. Patient history/risk factors: Chronic Atrial Fibrillation, Dementia, Peripheral vascular disease, CHF, Clinical Indicators: From ECF noted to be less oriented and less responsive. Left leg swelling and pain. Neurological :Patient is able to only perform simple one step commands, no focalizing neurologic deficit. Patient is orientated only to person. Vital signs: 108 57 97 18 97.7 99 % RA Labs: WBC 30,2 Lactic acid 4.1, UA large Leukocyte Esterase, hyaline casts 9 Chest X Ray: Right infrahilar opacity, differential includes prominent vessels, pneumonia, and atelectasis ID Consult: Mental status changes and weakness which could be more likely metabolic with a complaint of dehydration. the source is more likely the left lower extremity cellulitis. Treatment: IV@ 100/HR, Zosyn IV Neurological assessment per protocol In your professional opinion, please clarify the etiology of the altered mental status, if known. Encephalopathy (specify Metabolic, Toxic, Other and Underlying Medical Illness) Delirium (specify cause): Dementia (if know, specify Type and if with/without Behavioral Disturbance) Other condition (please specify) Unable to determine Please document in your progress notes and discharge summary in order to capture severity of illness and risk of mortality. Include clinical findings that support your diagnosis. FYI: Press F11 to launch patient chart. Place X here if this finding has no clinical significance, is not applicable or if you are not able to provide any additional documentation. MTDD
--- NOTE | 2016-12-21 15:14 | P.PN ---
Subjective Date of service 12/21/2016. Progress note being dictated for Dr. Mcdonald, Interval history: This a 71-year-old female resident of [facility] admitted with sepsis, possibly related to UTI, probably cellulitis of left lower extremity. Maintained on Zosyn as per infectious disease. MAP 68-83. Renal function improving. Sodium 138, chloride 112. Good diet intake, consuming 100% of lunch. Denies nausea or vomiting. Denies chest pain, or palpitations. Denies increase in shortness of breath. Afebrile. Hemoglobin 9.9. Review of systems: HEENT: Denies headache or focal deficits. Denies any dizziness or lightheadedness. Respiratory: Denies any increased shortness of breath. No cough. Cardiac: Denies any chest pain, palpitations. GI: Good diet intake, positive bowel movement. Denies any nausea, vomiting, or diarrhea. Denies any abdominal tenderness. : Denies any dysuria. Psychiatry: Denies any anxiety or depression. Active Medications Acetaminophen (Tylenol Tab) 650 mg PO Q4H PRN PRN Reason: Pain or Fever > 100.5 Allopurinol (Zyloprim) 300 mg PO DAILY [facility] Last Admin: 12/21/16 09:16 Dose: 300 mg Artificial Tears (Artificial Tear Drops) 1 drops BOTH EYES TID PRN PRN Reason: DRY EYES Benzonatate (Tessalon Perles) 100 mg PO Q8H PRN PRN Reason: Cough Bisacodyl (Dulcolax) 10 mg RECTAL DAILY PRN PRN Reason: Constipation Calcitriol (Rocaltrol) 0.25 mcg PO [facility] Citalopram Hydrobromide (Celexa) 20 mg PO DAILY [facility] Last Admin: 12/21/16 09:15 Dose: 20 mg Ferrous Sulfate (Feosol) 325 mg PO TID [facility] Last Admin: 12/21/16 11:59 Dose: 325 mg Fluticasone Propionate (Flonase Nasal [place]) 1 spray EA NOSTRIL DAILY [facility] Last Admin: 12/21/16 09:15 Dose: 1 spray Piperacillin/Tazobactam/ (Dextrose 3.375 gm/ IV Solution) 50 mls @ 12.5 mls/hr IVPB Q8HR [facility] Last Admin: 12/21/16 08:50 Dose: 12.5 mls/hr Levothyroxine Sodium (Synthroid) 100 mcg PO DAILY@0630 [facility] Last Admin: 12/21/16 06:28 Dose: 100 mcg Levothyroxine Sodium (Synthroid) 75 mcg PO DAILY@0630 [facility] Last Admin: 12/21/16 06:27 Dose: 75 mcg Nystatin (Mycostatin Oral Susp) 500,000 unit PO QID [facility] Last Admin: 12/21/16 13:34 Dose: 500,000 unit Pantoprazole Sodium (Protonix) 40 mg PO AC-BRKFST [facility] Last Admin: 12/21/16 06:30 Dose: 40 mg Prednisone () 40 mg PO DAILY [facility] Last Admin: 12/21/16 09:15 Dose: 40 mg Rivaroxaban (Xarelto) 15 mg PO W/SUPPER [facility] Last Admin: 12/20/16 17:23 Dose: 15 mg Senna (Senokot) 17.2 mg PO HS [facility] Last Admin: 12/20/16 21:32 Dose: 17.2 mg Sucralfate (Carafate) 1 gm PO ACHS [facility] Last Admin: 12/21/16 11:59 Dose: 1 gm Objective - Vital Signs Vital signs: Vital Signs Temp 97.3 F L 12/21/16 11:17 Pulse 60 12/21/16 11:17 Resp 20 12/21/16 11:17 BP 108/62 12/21/16 11:17 Pulse Ox 96 12/21/16 11:17 Intake & Output 12/20/16 12/21/16 12/21/16 18:59 06:59 18:59 Intake Total 100 120 Balance 100 120 Weight 104.5 kg 104.5 kg Intake: Oral 100 120 Other: # Voids 1 1 1 # Bowel Movements 1 - Exam PHYSICAL EXAM: VITAL SIGNS: As above GENERAL: [Sitting up in bed, no acute distress] HEENT: [Pupils equal conjunctiva normal. No conjunctival pallor. Mucosa moist] NECK: [Supple, no JVD] RESPIRATORY EFFORT:[Normal] LUNGS: [Clear to auscultation, bilateral bases diminished, no wheezing crackles or rhonchi] CARDIOVASCULAR[regular S1 and S2, no murmurs rubs or gallops, positive edema] GI: [Abdomen soft, nontender, positive bowel sounds.] PSYCH: [Alert and oriented -3, mood and affect normal.] SKIN: Bilateral lower leg edema,Left lower extremity Prateek wrap clean ,dry and intact, NEURO: [Gross neurological examination does not reveal any focal deficits] Microbiology 12/19/16 02:00 Urine,Catheterized Urine Culture - Preliminary Gram Neg Bacilli 12/19/16 02:00 Blood Blood Culture - Preliminary No Growth after 24 hours - Labs CBC & Chem 7: 12/21/16 07:20 12/21/16 07:20 Labs: Abnormal Lab Results - Last 24 Hours (Table) 12/21/16 12/21/16 Range/Units 07:20 07:20 WBC 15.1 H (3.8-10.6) k/uL RBC 3.36 L (3.80-5.40) m/uL Hgb 9.9 L (11.4-16.0) gm/dL Hct 32.8 L (34.0-46.0) % MCHC 30.0 L (31.0-37.0) g/dL RDW 16.7 H (11.5-15.5) % Neutrophils # 14.1 H (1.3-7.7) k/uL Lymphocytes # 0.3 L (1.0-4.8) k/uL Chloride 112 H (98-107) mmol/L Carbon Dioxide 20 L (22-30) mmol/L BUN 46 H (7-17) mg/dL Glucose 180 H (74-99) mg/dL Calcium 8.0 L (8.4-10.2) mg/dL Assessment and Plan Plan: 1. Sepsis, possibly related to UTI, probably related to cellulitis of the left lower extremity 2. Leukocytosis secondary to severe sepsis. 3. Acute renal failure, prerenal azotemia from CHF 4. Hypovolemic hyponatremia, improving 5. Peripheral vascular disease 6. History of C. difficile 7. Morbid obesity, BMI 39.1 8. Hypothyroidism 9. Restless leg syndrome and gout 10. Chronic lymphedema of the left lower extremity Plan: Continue on current medication regime, Zosyn, monitoring and symptomatic treatment. IV fluids discontinued, encourage oral fluid intake. Monitor cultures closely with antibiotics as per infectious disease. close monitoring of electrolytes with repeat labs ordered for a.m. Transfer to [facility] with remote telemetry. Further recommendations to follow. The impression and plan of care has been dictated as directed. Dr.: I performed a H&P examination of this patient and discussed the same with the dictator. I agree with the dictator's note. Any additional findings/opinions/ etc. will be noted.
[2016-12-21] MEDS: RIVAROXABAN 15 MG TAB PO SCH (16:19)
--- NOTE | 2016-12-21 18:08 | PN ---
DATE OF SERVICE: 12/21/2016 This 71-year-old woman who was admitted to the hospital with sepsis, possibly UTI is being closely monitored at this time. The patient also had sepsis. Seen and evaluated the patient along with nurse practitioner. Please refer to the nurse practitioner notes and impression documented as a scribe for further information. Guarded prognosis.
[2016-12-21] MEDS: SENNOSIDES 8.6 MG TAB PO SCH (22:00)
--- NOTE | 2016-12-21 22:16 | PN ---
DATE OF SERVICE: 12/21/2016 Reason for follow-up is UTI and left lower extremity cellulitis. INTERVAL HISTORY: The patient is afebrile. He is currently breathing comfortably. Denies significant chest pain. No cough. No abdominal pain or any diarrhea. On examination, blood pressure 108/62 with a pulse of 50, temperature 97.3, she is 95% on room air. GENERAL: Elderly female lying in bed in no distress. RESPIRATORY: Unlabored breathing. Clear to auscultation anteriorly. CARDIOVASCULAR: Heart S1, S2 regular rate and rhythm. ABDOMEN: Soft, no tenderness. LABS: BUN of 46, creatinine 0.97. Hemoglobin is 9.9 with a white count 15.1. ( ) 30.2. Urine showing an ESBL E. coli. Blood culture has been negative. DIAGNOSTIC IMPRESSION AND PLAN: The patient was admitted to the hospital with elevated white count. Source is more likely left lower extremity cellulitis. The patient did have a positive UA and however, the patient did not have significant urinary symptoms, now with urine showing an ESBL Escherichia coli. We did obtain a repeat UA and straight cath has been negative. At this time I will direct her antibiotic therapy specifically to lower extremity cellulitis with cefazolin along with Prateek wrap to keep the swelling down and we will reevaluate the patient tomorrow. Continue supportive care.
[2016-12-22] MEDS: ceFAZolin 2 GM in SODIUM CHLORIDE 0.9% 100 ML IVPB SCH ×3 (00:24→15:05)
[2016-12-22] MEDS: LEVOTHYROXINE 100 MCG TAB PO SCH (06:10)
[2016-12-22] MEDS: LEVOTHYROXINE 75 MCG TAB PO SCH (06:10)
[2016-12-22] MEDS: PANTOPRAZOLE 40 MG TABLET PO SCH (09:02)
[2016-12-22] MEDS: ALLOPURINOL 300 MG TAB PO SCH (09:02)
[2016-12-22] MEDS: SUCRALFATE 1 GM TAB PO SCH ×4 (09:02→21:39)
[2016-12-22] MEDS: predniSONE 20 MG TAB PO SCH (09:02)
[2016-12-22] MEDS: NYSTATIN 100,000 UNIT/ML SUSP 500,000 UNIT/5 ML CUP PO SCH ×4 (09:02→21:39)
[2016-12-22] MEDS: FERROUS SULFATE 325 MG TAB PO SCH ×3 (09:02→21:39)
[2016-12-22] MEDS: CITALOPRAM HYDROBROMIDE 20 MG TAB PO SCH (09:02)
[2016-12-22] MEDS: FLUTICASONE 50MCG/SPRAY NASAL 16GM EA NOSTRIL SCH (09:02)
[2016-12-22 10:43] LABS: Anisocytosis Slight; Basophils % (A) 0 %; CH 28.5; CHCM 30.3; Eosinophils % (A) 0 %; HCT 34.1 % (34.0-46.0); HDW 2.98; HGB 10.7 gm/dL (11.4-16.0); Hypochromasia Marked; Luc # (Auto) 0.15; Luc % (Auto) 2; Lymphocytes # (A) 0.2 k/uL (1.0-4.8); Lymphocytes % (A) 3 %; MCH 29.5 pg (25.0-35.0); MCHC 31.4 g/dL (31.0-37.0); Mean Platelet Volume 7.5; Monocytes # (A) 0.3 k/uL (0-1.0); Monocytes % (A) 4 %; Neutrophils # (A) 6.8 k/uL (1.3-7.7); Neutrophils % (A) 91 %; RBC 3.62 m/uL (3.80-5.40); RDW 16.3 % (11.5-15.5); WBC 7.5 k/uL (3.8-10.6); WBC (Perox) 7.65
[2016-12-22 11:04] LABS: Anion Gap 4 mmol/L; Blood Urea Nitrogen 39 mg/dL (7-17); Calcium 7.9 mg/dL (8.4-10.2); Carbon Dioxide 24 mmol/L (22-30); Chloride 110 mmol/L (98-107); Glucose 179 mg/dL (74-99); Non-African American GFR(MDRD) >60 (>60 ml/min/1.73 sqM); Sodium 138 mmol/L (137-145)
[2016-12-22] MEDS: RIVAROXABAN 15 MG TAB PO SCH (17:29)
--- NOTE | 2016-12-22 20:31 | PN ---
DATE OF SERVICE: 12/22/2016 REASON FOR FOLLOWUP: 1. Left lower extremity cellulitis. 2. Positive urine culture with an ESBL E coli, likely contamination. INTERVAL HISTORY: The patient is afebrile. She has been feeling better, breathing comfortably. Denies significant chest pain or cough. No abdominal pain or any diarrhea. On examination, blood pressure is 98/54 with a pulse of 66, temperature 97.7. She is 94% on room air. General description is an elderly female lying in bed in no distress. RESPIRATORY SYSTEM: Unlabored breathing. Clear to auscultation anteriorly. HEART: S1, S2. Regular rate and rhythm. ABDOMEN: Soft. No tenderness. Left leg is currently dressed up. No obvious drainage on the dressing. LABS: Hemoglobin is 10.7, white count of 7.5 with a BUN of 39, creatinine 0.91. Repeat urine is negative. DIAGNOSTIC IMPRESSION AND PLAN: 1. Patient with fever and elevated white count. Source likely left lower extremity cellulitis with diffuse swelling and redness ( ) doing well on cefazolin. Plan is to finish therapy with p.o. Keflex. 2. Positive wound culture with an Escherichia coli, ESBL, likely colonization versus contamination, as the repeat UA is negative without getting treatment for the same. No need for further therapy for the same.
[2016-12-22] MEDS: SENNOSIDES 8.6 MG TAB PO SCH (21:38)
--- NOTE | 2016-12-22 22:23 | P.PN ---
Subjective Date of service 12/22/2016. Progress note being dictated for Dr. Mcdonald, Interval history: This a 71-year-old female resident of [facility] admitted with sepsis, possibly related to UTI, probably cellulitis of left lower extremity. Maintained on cefazolin as per infectious disease. Initial urine culture with E. coli, MDRO, ESBL, repeat urine cx pending. Renal function improving. Good diet intake.Denies nausea or vomiting. Denies chest pain, or palpitations. Denies increase in shortness of breath. Afebrile, WBC normalized. Hemoglobin 10.7. Review of systems: HEENT: Denies headache or focal deficits. Denies any dizziness or lightheadedness. Respiratory: Denies any increased shortness of breath. No cough. Cardiac: Denies any chest pain, palpitations. GI: Good diet intake, positive bowel movement. Denies any nausea, vomiting, or diarrhea. Denies any abdominal tenderness. : Denies any dysuria. Psychiatry: Denies any anxiety or depression. Active Medications Generic Name Dose Route Start Last Admin Trade Name Freq PRN Reason Stop Dose Admin Acetaminophen 650 mg 12/19/16 11:53 Tylenol Tab PO Q4H PRN Pain or Fever > 100.5 Allopurinol 300 mg 12/20/16 09:00 12/22/16 09:02 Zyloprim PO 300 mg DAILY [facility] Administration Artificial Tears 1 drops 12/19/16 11:53 Artificial Tear Drops BOTH EYES TID PRN DRY EYES Benzonatate 100 mg 12/19/16 11:53 Tessalon Perles PO Q8H PRN Cough Bisacodyl 10 mg 12/19/16 11:53 Dulcolax RECTAL DAILY PRN Constipation Calcitriol 0.25 mcg 12/25/16 12:00 Rocaltrol PO SA [facility] Citalopram Hydrobromide 20 mg 12/20/16 09:00 12/22/16 09:02 Celexa PO 20 mg DAILY [facility] Administration Ferrous Sulfate 325 mg 12/19/16 16:00 12/22/16 21:39 Feosol PO 325 mg TID [facility] Administration Fluticasone Propionate 1 spray 12/20/16 09:00 12/22/16 09:02 Flonase Nasal [place] EA NOSTRIL 1 spray DAILY [facility] Administration Cefazolin Sodium 2 gm/ Sodium 100 mls @ 100 mls/hr 12/22/16 00:00 12/22/16 15 :05 Chloride IVPB 100 mls/hr Q8HR [facility] Administration Levothyroxine Sodium 100 mcg 12/20/16 06:30 12/22/16 06:10 Synthroid PO 100 mcg DAILY@0630 [facility] Administration Levothyroxine Sodium 75 mcg 12/20/16 06:30 12/22/16 06:10 Synthroid PO 75 mcg DAILY@0630 [facility] Administration Nystatin 500,000 unit 12/19/16 13:00 12/22/16 21:39 Mycostatin Oral Susp PO 500,000 unit QID [facility] Administration Pantoprazole Sodium 40 mg 12/20/16 07:30 12/22/16 09:02 Protonix PO 40 mg AC-BRKFST [facility] Administration Prednisone 40 mg 12/20/16 09:00 12/22/16 09:02 PO 40 mg DAILY [facility] Administration Rivaroxaban 15 mg 12/19/16 17:30 12/22/16 17:29 Xarelto PO 15 mg W/SUPPER [facility] Administration Senna 17.2 mg 12/19/16 21:00 12/22/16 21:38 Senokot PO 17.2 mg HS [facility] Administration Sucralfate 1 gm 12/19/16 12:30 12/22/16 21:39 Carafate PO 1 gm ACHS [facility] Administration Objective - Vital Signs Vital signs: Vital Signs Temp 97.6 F 12/22/16 07:00 Pulse 62 12/22/16 07:00 Resp 16 12/22/16 07:00 BP 100/53 12/22/16 07:00 Pulse Ox 96 12/22/16 07:00 Intake & Output 12/21/16 12/22/16 12/22/16 18:59 06:59 18:59 Intake Total 760 240 Output Total 200 Balance 560 240 Weight 104.5 kg Intake: Intake, IV Titration 400 Amount Sodium Chloride 0.9% 1, 400 000 ml @ 100 mls/hr IV . Q10H [facility] Rx#:[id number] Oral 360 240 Output: Urine 200 Straight 200 Other: # Voids 1 1 - Exam PHYSICAL EXAM: VITAL SIGNS: As above GENERAL: [Sitting up in bed, no acute distress] HEENT: [Pupils equal conjunctiva normal. No conjunctival pallor. Mucosa moist] NECK: [Supple, no JVD] RESPIRATORY EFFORT:[Normal] LUNGS: [Clear to auscultation, bilateral bases diminished, no wheezing crackles or rhonchi] CARDIOVASCULAR[regular S1 and S2, no murmurs rubs or gallops, positive edema] GI: [Abdomen soft, nontender, positive bowel sounds.] PSYCH: [Alert and oriented -3, mood and affect normal.] SKIN: Bilateral lower leg edema,Left lower extremity dressing clean ,dry and intact, NEURO: [Gross neurological examination does not reveal any focal deficits] Microbiology 12/19/16 02:00 Blood Blood Culture - Preliminary No Growth after 72 hours 12/21/16 14:00 Urine,Catheterized Urine Culture - Preliminary 12/19/16 02:00 Urine,Catheterized Urine Culture - Final Escherichia coli - Labs CBC & Chem 7: 12/22/16 10:17 12/22/16 10:17 Labs: Microbiology - Last 24 Hours (Table) 12/21/16 14:00 Urine Culture - Preliminary Urine,Catheterized Assessment and Plan Plan: 1. Sepsis, probably related to cellulitis of the left lower extremity;acute UTI with Ecoli, ESBL,MDRO, suspect contamination with repeat cx pending. 2. Leukocytosis secondary to severe sepsis,resolved. 3. Acute renal failure, prerenal azotemia from CHF 4. Hypovolemic hyponatremia, resolved. 5. Peripheral vascular disease 6. History of C. difficile 7. Morbid obesity, BMI 39.1 8. Hypothyroidism 9. Restless leg syndrome and gout 10. Chronic lymphedema of the left lower extremity 11. Acute metabolic encephalopathy, multifactorial, present on admission, improving Plan: Continue on current medication regime, cefazolin,monitoring and symptomatic treatment. Monitor repeat cultures closely with antibiotics as per infectious disease. Discharge planning in progress for [facility] tomorrow. Further recommendations to follow. The impression and plan of care has been dictated as directed. : I performed a H&P examination of this patient and discussed the same with the dictator. I agree with the dictator's note. Any additional findings/opinions/ etc. will be noted.
--- NOTE | 2016-12-22 22:47 | PN ---
DATE OF SERVICE: 12/22/2016 This 71-year-old woman who was admitted with UTI with sepsis being closely monitored. Seen and evaluated the patient along with nurse practitioner. Please refer to the nurse practitioner notes and impression documented as a scribe for further information. Further recommendations to follow.
[2016-12-22 23:07] VITALS: PULSE 62
[2016-12-23] MEDS: ceFAZolin 2 GM in SODIUM CHLORIDE 0.9% 100 ML IVPB SCH ×2 (01:16→08:46)
[2016-12-23] MEDS: LEVOTHYROXINE 100 MCG TAB PO SCH (06:08)
[2016-12-23] MEDS: LEVOTHYROXINE 75 MCG TAB PO SCH (06:08)
[2016-12-23 08:00] VITALS: BP 114/69; RESP 18; TEMP 97.8
[2016-12-23] MEDS: predniSONE 20 MG TAB PO SCH (08:47)
[2016-12-23] MEDS: FLUTICASONE 50MCG/SPRAY NASAL 16GM EA NOSTRIL SCH (08:47)
[2016-12-23] MEDS: FERROUS SULFATE 325 MG TAB PO SCH (08:47)
[2016-12-23] MEDS: SUCRALFATE 1 GM TAB PO SCH ×2 (08:47→11:43)
[2016-12-23] MEDS: CITALOPRAM HYDROBROMIDE 20 MG TAB PO SCH (08:48)
[2016-12-23] MEDS: ALLOPURINOL 300 MG TAB PO SCH (08:48)
[2016-12-23] MEDS: PANTOPRAZOLE 40 MG TABLET PO SCH (08:49)
[2016-12-23] MEDS: NYSTATIN 100,000 UNIT/ML SUSP 500,000 UNIT/5 ML CUP PO SCH ×2 (08:49→11:43)
--- NOTE | 2016-12-23 12:31 | DS ---
DATE OF ADMISSION: 12/19/2016 DATE OF DISCHARGE: FINAL DIAGNOSES: 1. Severe sepsis. 2. Acute cellulitis of the left lower extremity with acute on chronic cellulitis with acute sepsis. 3. Acute urinary tract infection with Escherichia coli ESBL, MDRO also suspect a contamination. 4. Leukocytosis secondary to severe sepsis, resolved. 5. Acute renal failure prerenal azotemia from congestive heart failure. 6. Hypovolemic hyponatremia, resolved. 7. Peripheral vascular disease. 8. History of Clostridium difficile colitis. 9. Morbid obesity, body mass index of 39.1. 10. Hypothyroidism. 11. Restless leg syndrome and gout. 12. Chronic lymphedema of the lower extremity. 13. Acute metabolic encephalopathy, multifactorial, present on admission, improving. 14. NO CODE, NO CARDIOPULMONARY RESUSCITATION, NO VENTILATOR. DISCHARGE DISPOSITION: The patient will be discharged in a stable condition with guarded prognosis. Patient will be transferred to [facility]. Total time taken is 35 minutes. HISTORY OF PRESENT ILLNESS: This is a 71-year-old woman with a past medical history of multiple medical problems was admitted with features of sepsis, cellulitis and UTI. Patient was treated with antibiotics. Infectious Disease saw the patient. Cultures are as above. On exam, vitals are stable. CARDIOVASCULAR SYSTEM: S1, S2, muffled. RESPIRATORY: A few rhonchi, no crackles. ABDOMEN: Soft. NERVOUS SYSTEM: Unchanged. LABS: WBC improved to 7.3, hemoglobin is 10.7. Sodium 138. DISCHARGE ADVICE: 1. Diet is cardiac. 2. Activity limited until followup. 3. Follow up with Dr. Arango in 2 to 3 days. 4. CBC, BMP in 2 to 3 days in the ECF. MEDICATIONS: 1. Tylenol 650 q.4 p.r.n. 2. Zyloprim 300 mg p.o. daily. 3. Artificial tears1 drops t.i.d. p.r.n. 4. Benzonatate 100 mg p.o. q.8. 5. Rocaltrol 0.5 mg p.o. Tuesday. 6. Keflex 5 mg p.o. q.8 for 10 days. 7. Celexa 20 mg p.o. daily. 8. Vitamin D2 fifty thousand p.o. Tuesday. 9. Iron sulfate 65 mg p.o. t.i.d. 10. Fluticasone 1 spray each nostril daily. 11. Folic acid 1 mg p.o. q.h.s. 12. Lasix 40 mg p.o. daily. 13. Lactulose 20 mg q.h.s. p.r.n., hold if the patient has diarrhea. 14. Synthroid 175 mcg p.o. daily. 15. Magnesium oxide 400 mg q.h.s. 16. Bio freeze 1 application topically. 17. ProAmatine 5 mg p.o. daily. 18. Multivitamin 1 p.o. q.h.s. 19. Nystatin 5 mL q.i.d. for 10 days. 20. Prilosec 20 mg p.o. daily. 21. Xarelto 15 mg with supper. 22. Senna 17.25 mg q.h.s. p.r.n. 23. Carafate 1 gm p.o. q.a.c. and at bedtime. 24. Prednisone one drop right eye daily. 25. Hold laxatives if diarrhea. 26. Yogurt 1 p.o. t.i.d. MTDD
--- NOTE | 2016-12-23 14:18 | PN ---
DATE OF SERVICE: 12/23/2016 Reason for followup is left lower extremity cellulitis. INTERVAL HISTORY: The patient is afebrile. She is breathing comfortably. Denies any significant chest pain, cough or abdominal pain or any pain in the left neck area. No drainage. No urinary symptoms. On examination, blood pressure 114/69 with a pulse of 62, temperature is a 97.8, she is 97% on room air. General description is an elderly female, lying in bed in no distress. RESPIRATORY SYSTEM: Unlabored breathing. Clear to auscultation anteriorly. HEART: S1, S2, regular rate and rhythm. ABDOMEN: Soft, no tenderness. LABS: Hemoglobin 10.7, white count 7.5, BUN of 39, creatinine 0.91. DIAGNOSTIC IMPRESSION AND PLAN: 1. Patient with left lower extremity cellulitis likely streptococcal disease, responded to the cefazolin. Will then finish therapy with p.o. Keflex for another week along with Prateek wrap to the leg to keep the swelling down. 2. Positive urine culture with an Escherichia coli yesterday, likely contamination as the follow up urine was negative and the cultures are negative. No need for further work-up for the same. MTDD
[2016-12-25] MEDS ORDERED: CALCITRIOL 0.25 MCG CAP PO SCH (12:00)
== END 2016-12-23 15:30 | DRG 871 ==
LOC: EC 01:21 → 6SEL 06:40 → 5MS5E 12-21 15:33
PROVIDERS: ADMIT Hospitalist; ATTEND Hospitalist
DX: A41.9 Sepsis, unspecified organism (principal); G92 Toxic encephalopathy; N17.9 Acute kidney failure, unspecified; E87.2 Acidosis; F03.90 Unspecified dementia, unspecified severity, without behavioral disturbance, psychotic disturbance, mood disturbance, and anxiety; I48.91 Unspecified atrial fibrillation; E87.1 Hypo-osmolality and hyponatremia; E86.1 Hypovolemia; L03.116 Cellulitis of left lower limb; N39.0 Urinary tract infection, site not specified; I50.9 Heart failure, unspecified; E66.01 Morbid (severe) obesity due to excess calories; B96.20 Unspecified Escherichia coli [E. coli] as the cause of diseases classified elsewhere; E03.9 Hypothyroidism, unspecified; G25.81 Restless legs syndrome; H54.8 Legal blindness, as defined in USA; I73.9 Peripheral vascular disease, unspecified; I89.0 Lymphedema, not elsewhere classified; K21.9 Gastro-esophageal reflux disease without esophagitis; M10.9 Gout, unspecified; R65.20 Severe sepsis without septic shock; Z68.39 Body mass index [BMI] 39.0-39.9, adult; Z79.899 Other long term (current) drug therapy; Z82.49 Family history of ischemic heart disease and other diseases of the circulatory system; Z86.19 Personal history of other infectious and parasitic diseases; Z88.1 Allergy status to other antibiotic agents
CPT/HCPCS: 36415; 71010; 80048; 80053; 81001; 81003; 82533; 83605; 84443; 84484; 85025; 85027; 85610; 85730; 87040; 87077; 87086; 87186; 93005; 96365; 96366; 96368; 99285

== ENCOUNTER 2017-01-05 16:55 | Inpatient (IN) | payer MEDICARE, OTHER ==
[2017-01-05] MEDS ORDERED: ACETAMINOPHEN TAB 500 MG TAB PO STA (17:15)
[2017-01-05] MEDS ORDERED: SODIUM CHLORIDE 0.9% 500 ML IV SCH (17:15)
--- NOTE | 2017-01-05 17:19 | ED ---
General Adult HPI - General Chief complaint: Fever Stated complaint: elevated temp Time Seen by Provider: 01/05/17 17:04 Source: patient, RN/MD, EMS, RN notes reviewed Mode of arrival: EMS Limitations: no limitations - History of Present Illness Initial comments: Patient is a pleasant 71-year-old female presenting to the emergency department complaining of not feeling well. Patient admits to having fatigue. Patient reportedly had fever. Patient does have a history of recurrent sepsis and cellulitis. Patient is a poor historian. - Related Data Home Medications Medication Instructions Recorded Confirmed Omeprazole [PriLOSEC] 20 mg PO DAILY 11/06/14 01/05/17 Multivitamins, Thera [Multivitamin 1 tab PO HS 03/13/15 01/05/17 (formulary)] Acetaminophen [Tylenol] 650 mg PO Q4H PRN 04/22/15 01/05/17 Rivaroxaban [Xarelto] 15 mg PO W/SUPPER 06/03/15 01/05/17 Artificial Tears-Hypromellose 1 drops BOTH EYES TID PRN 09/15/15 01/05/17 [Artificial Tear Drops] Citalopram Hydrobromide [CeleXA] 20 mg PO DAILY 01/31/16 01/05/17 Midodrine HCl [ProAmatine] 5 mg PO DAILY 01/31/16 01/05/17 Sucralfate [Carafate] 1 gm PO ACHS 01/31/16 01/05/17 Allopurinol [Zyloprim] 300 mg PO DAILY 06/26/16 01/05/17 Calcitriol [Rocaltrol] 0.25 mcg PO SA 06/26/16 01/05/17 Ergocalciferol [Vitamin D2 50,000 unit PO WE 06/26/16 01/05/17 (DRISDOL)] Ferrous Sulfate [Iron (65 MG 325 mg PO TID 06/26/16 01/05/17 Elemental)] Magnesium Oxide [Mag-Ox] 400 mg PO HS 06/26/16 01/05/17 Fluticasone Nasal [place] [Flonase 1 spr EA NOSTRIL DAILY 12/19/16 01/05/17 Nasal [place]] Lactulose 20 gm PO HS 12/19/16 01/05/17 Menthol [Biofreeze] 1 applic TOPICAL TID 12/19/16 01/05/17 Sennosides [Senna] 17.2 mg PO HS 12/19/16 01/05/17 prednisoLONE ACETATE [Pred Forte 1 drop RIGHT EYE DAILY 12/19/16 01/05/17 1%] Cefuroxime Axetil [Ceftin] 500 mg PO BID 01/05/17 01/05/17 Dermaseptin 1 applic TOPICAL DAILY@0500 01/05/17 01/05/17 Furosemide [Lasix] 20 mg PO DAILY 01/05/17 01/05/17 Levothyroxine Sodium [Synthroid] 200 mcg PO DAILY 01/05/17 01/05/17 cefTRIAXone [Rocephin] 1,000 mg IM ONCE 01/05/17 01/05/17 Allergies Allergy/AdvReac Type Severity Reaction Status Date / Time vancomycin Allergy Anaphylaxis Verified 01/05/17 17:12 Review of Systems ROS Statement: Those systems with pertinent positive or pertinent negative responses have been documented in the HPI. ROS Other: All systems not noted in ROS Statement are negative. Constitutional: Reports: fever Eyes: Denies: eye pain ENT: Denies: ear pain Respiratory: Denies: cough Cardiovascular: Denies: chest pain Endocrine: Reports: fatigue Gastrointestinal: Denies: abdominal pain Genitourinary: Denies: dysuria Musculoskeletal: Denies: back pain Skin: Reports: rash Neurological: Denies: headache Past Medical History Past Medical History: Atrial Fibrillation, Chest Pain / Angina, Dementia, Eye Disorder, GERD/Reflux, Osteoarthritis (OA), Renal Disease, Thyroid Disorder, Vascular Disorder Additional Past Medical History / Comment(s): Chronic atrial fibrillation, dementia, osteoarthritis, chronic hypercapnic respiratory failure, morbid obesity, chronic lymphedema of the lower extremities with recurrent episodes of cellulitis, previous history of C. diff colitis, congestion heart failure, peripheral vascular disease, chronic hypotension, recurrent urine checked infections, osteoarthritis, the patient has a right-sided Mediport, paroxysmal atrial fibrillation, previous urine checked infection including infections with enterococcus, pseudomonas, Morganella morganii, E. coli, VRE. 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 History of Any Multi-Drug Resistant Organisms: MRSA, VRE Date of last positivie culture/infection: 12/03/2014-VRE; 09/28/2012-MRSA MDRO Source:: Urine-VRE; Abd Wound-MRSA Past Surgical History: Appendectomy, Back Surgery, Tonsillectomy Additional Past Surgical History / Comment(s): back surgery with laminectomy 2 , umbilical hernia repair in September 2012 followed by cellulitis and nonhealing wounds to the area, mediport R chest. Past Anesthesia/Blood Transfusion Reactions: No Reported Reaction Past Psychological History: Depression Additional Psychological History / Comment(s): This patient is . She is currently at the [facility]. She has a legal gaurdian-Anahi Butler [phone]. She gets up into a wheelchair with assistance. She needs assist with ADLs. She feeds herself. She has one son and one [id number] both they live in [place]. No travel hx, no pets, no service. Smoking Status: Never smoker Past Alcohol Use History: None Reported Additional Past Alcohol Use History / Comment(s): Patient is a lifelong nonsmoker. She denies any alcohol use or abuse. Past Drug Use History: None Reported - Past Family History Son(s) Family Medical History: Cancer Additional Family Medical History / Comment(s): Pt states her son has pelvic cancer with mets. Father History Unknown: Yes Family Medical History: Coronary Artery Disease (CAD) Additional Family Medical History / Comment(s): Father at 93 yrs of age. Mother History Unknown: Yes Family Medical History: Respiratory Disorder Additional Family Medical History / Comment(s): Mother in her 80's of a rare lung dx. General Exam Limitations: no limitations General appearance: alert, in no apparent distress Head exam: Present: atraumatic Eye exam: Present: normal appearance, PERRL ENT exam: Present: normal oropharynx Neck exam: Present: normal inspection Respiratory exam: Present: normal lung sounds bilaterally Cardiovascular Exam: Present: regular rate, normal rhythm GI/Abdominal exam: Present: soft. Absent: tenderness Extremities exam: Present: pedal edema Neurological exam: Present: alert Psychiatric exam: Present: normal affect, normal mood Skin exam: Present: rash (Similar rash involving the entire left leg and lower abdomen. Blanchable. Mild cellulitis right lower leg. Left lateral abdomen with area of thin white milky discharge. Culture sent to lab.) Course Vital Signs 01/05/17 17:11 Temperature 101.0 F H Pulse Rate 99 Respiratory 16 Rate Blood Pressure 85/47 O2 Sat by Pulse 94 L Oximetry - Reevaluation(s) Reevaluation #1: 01/05/17 17:31 Case was discussed in detail with Dr. Fernandez who is familiar with this patient and will admit for Dr. Arango. He does recommend adding daptomycin. EKG Findings - EKG Comments: EKG Findings:: Sinus tachycardia 101. PA 162. QRS 78. QT 336. QTc 45. Normal axis. Septal Q waves. No acute ST change. Medical Decision Making - Medical Decision Making Potassium reported as having some homolysis and will be rechecked. Patient was provided fluid bolus. Patient reexamined and updated. IV antibiotics have been started. Patient does meet criteria for severe sepsis. - Lab Data Result diagrams: 01/05/17 17:05 01/05/17 17:05 Lab Results 01/05/17 01/05/17 01/05/17 Range/Units 17:05 17:05 17:05 WBC 9.2 (3.8-10.6) k/uL RBC 4.89 (3.80-5.40) m/uL Hgb 13.8 D (11.4-16.0) gm/dL Hct 46.1 H (34.0-46.0) % MCV 94.3 (80.0-100.0) fL MCH 28.2 (25.0-35.0) pg MCHC 29.9 L (31.0-37.0) g/dL RDW 17.8 H (11.5-15.5) % Plt Count 308 (150-450) k/uL PT (9.0-12.0) sec INR (<1.1) APTT (22.0-30.0) sec Sodium 134 L (137-145) mmol/L Potassium 6.4 H* (3.5-5.1) mmol/L Chloride 103 (98-107) mmol/L Carbon Dioxide 24 (22-30) mmol/L Anion Gap 7 mmol/L BUN 35 H (7-17) mg/dL Creatinine 0.80 (0.52-1.04) mg/dL Est GFR (MDRD) Af Amer >60 (>60 ml/min/1.73 sqM) Est GFR (MDRD) Non-Af >60 (>60 ml/min/1.73 sqM) Glucose 168 H (74-99) mg/dL Plasma Lactic Acid Deandre 3.0 H* (0.7-2.0) mmol/L Calcium 8.4 (8.4-10.2) mg/dL Total Bilirubin 0.5 (0.2-1.3) mg/dL AST 31 (14-36) U/L ALT 24 (9-52) U/L Alkaline Phosphatase 78 (38-126) U/L Total Protein 5.0 L (6.3-8.2) g/dL Albumin 2.3 L (3.5-5.0) g/dL /11/19 Range/Units 17:05 WBC (3.8-10.6) k/uL RBC (3.80-5.40) m/uL Hgb (11.4-16.0) gm/dL Hct (34.0-46.0) % MCV (80.0-100.0) fL MCH (25.0-35.0) pg MCHC (31.0-37.0) g/dL RDW (11.5-15.5) % Plt Count (150-450) k/uL PT 11.5 (9.0-12.0) sec INR 1.2 (<1.1) APTT 22.6 (22.0-30.0) sec Sodium (137-145) mmol/L Potassium (3.5-5.1) mmol/L Chloride (98-107) mmol/L Carbon Dioxide (22-30) mmol/L Anion Gap mmol/L BUN (7-17) mg/dL Creatinine (0.52-1.04) mg/dL Est GFR (MDRD) Af Amer (>60 ml/min/1.73 sqM) Est GFR (MDRD) Non-Af (>60 ml/min/1.73 sqM) Glucose (74-99) mg/dL Plasma Lactic Acid Deandre (0.7-2.0) mmol/L Calcium (8.4-10.2) mg/dL Total Bilirubin (0.2-1.3) mg/dL AST (14-36) U/L ALT (9-52) U/L Alkaline Phosphatase (38-126) U/L Total Protein (6.3-8.2) g/dL Albumin (3.5-5.0) g/dL - Radiology Data Radiology results: image reviewed (Chest x-ray shows no acute process) Critical Care Time Critical Care Time: Yes Total Critical Care Time: 35 Disposition Clinical Impression: Severe sepsis, Cellulitis Disposition: ADMITTED IP TO THIS [facility] Condition: Serious
[2017-01-05] MEDS ORDERED: PIPERACILLIN-TAZOBACTAM 3.375 GM in DEXTROSE/WATER 1 50ML.BAG IVPB STA (17:20)
[2017-01-05] MEDS ORDERED: SODIUM CHLORIDE 0.9% 1,000 ML IV STA ×2 (17:28)
[2017-01-05] MEDS ORDERED: SODIUM CHLORIDE 0.9% 500 ML IV STA (17:28)
--- NOTE | 2017-01-05 17:44 | XR ---
EXAMINATION TYPE: XR chest 2V DATE OF EXAM: 01/05/2017 5:33 PM COMPARISON: December 19, 2016 HISTORY: Fever and bilateral lower extremity redness TECHNIQUE: Frontal and lateral views of the chest are obtained. FINDINGS: Right-sided port catheter tip superimposing the SVC. EKG leads noted. There is no focal air space opacity, pleural effusion, or pneumothorax seen. The cardiac silhouette size is within normal limits. The osseous structures are intact. IMPRESSION: No acute radiographic process.
[2017-01-05 17:51] LABS: Anisocytosis Slight; CH 28.5; CHCM 30.2; HCT 46.1 % (34.0-46.0); HDW 2.65; Hypochromasia Marked; Immature Gran Flag Marked; MCH 28.2 pg (25.0-35.0); MCHC 29.9 g/dL (31.0-37.0); MCV 94.3 fL (80.0-100.0); RBC 4.89 m/uL (3.80-5.40); RDW 17.8 % (11.5-15.5); WBC 9.2 k/uL (3.8-10.6); WBC (Perox) 9.05
[2017-01-05 17:52] LABS: HGB 13.8 gm/dL (11.4-16.0)
[2017-01-05 17:58] LABS: ALT 24 U/L (9-52); AST 31 U/L (14-36); Alkaline Phosphatase 78 U/L (38-126); Anion Gap 7 mmol/L; Blood Urea Nitrogen 35 mg/dL (7-17); Calcium 8.4 mg/dL (8.4-10.2); Carbon Dioxide 24 mmol/L (22-30); Chloride 103 mmol/L (98-107); Glucose 168 mg/dL (74-99); Non-African American GFR(MDRD) >60 (>60 ml/min/1.73 sqM); Sodium 134 mmol/L (137-145); Total Bilirubin 0.5 mg/dL (0.2-1.3)
[2017-01-05 18:00] LABS: Potassium 6.4 mmol/L (3.5-5.1)
[2017-01-05 18:12] LABS: INR 1.2 (<1.1); Partial Thromboplastin Time 22.6 sec (22.0-30.0); Prothrombin Time 11.5 sec (9.0-12.0)
[2017-01-05] MEDS ORDERED: DAPTOmycin 500 MG in SODIUM CHLORIDE 0.9% 50 ML IV ONE (18:30)
[2017-01-05 18:42] LABS: Add Differential Manual Differential
[2017-01-05 18:45] LABS: Manual Review Performed; Nucleated Red Blood Cells 0 /100 WBC (0-0); Polychromasia Present; Total Cells Counted 100
[2017-01-05] MEDS ORDERED: NALOXONE 0.4 MG/ML 1 ML VIAL IV PRN (19:10)
[2017-01-05] MEDS ORDERED: ACETAMINOPHEN TAB 325 MG TAB PO PRN (19:10)
[2017-01-05 19:38] LABS: Appearance,Urine Clear (Clear); Bilirubin,Urine Negative (Negative); Glucose,Urine (UA) Negative (Negative); Ketones,Urine Negative (Negative); Leukocyte Esterase,Urine Negative (Negative); Nitrite,Urine Negative (Negative); PH, Urine 5.5 (5.0-8.0); Protein,Urine Negative (Negative); Specific Gravity,Urine 1.012 (1.001-1.035); UA Billing (MACRO vs. MICRO) CHEM; Urobilinogen,Urine <2.0 mg/dL (<2.0)
[2017-01-05 23:01] VITALS: BMI 37.1
[2017-01-05] MEDS ORDERED: ARTIFICIAL TEARS-HYPROMELLOSE DROPS 15 ML BTL BOTH EYES PRN (23:12)
[2017-01-05] MEDS ORDERED: LACTULOSE 200 GM/300 ML (FROM 1/2 GAL JUG) PO SCH (23:15)
[2017-01-05] MEDS ORDERED: INSULIN REGULAR 100 UNIT/ML VIAL SQ ONE (23:29)
[2017-01-05] MEDS ORDERED: DEXTROSE 50%-WATER 50 ML SYRINGE IVP STA (23:30)
[2017-01-05] MEDS ORDERED: ALBUTEROL NEBULIZED 2.5 MG/3 ML INHALATION PRN (23:31)
[2017-01-05] MEDS ORDERED: SODIUM POLYSTYRENE SULFONATE 15 GM/60 ML BOTTLE PO STA (23:36)
[2017-01-06] MEDS ORDERED: CALCIUM GLUCONATE 1,000 MG in SODIUM CHLORIDE 0.9% 100 ML IVPB ONE ×2
[2017-01-06] MEDS ORDERED: NOREPINEPHRIN 4 MG-0.9% NS PMX 4 MG/250 ML ML IV ONE (00:08)
[2017-01-06] MEDS: NOREPINEPHRIN 4 MG-0.9% NS PMX 4 MG/250 ML ML IV SCH ×4 (00:08→17:22)
[2017-01-06] MEDS ORDERED: SODIUM BICARB 8.4% 50 ML SYR (1 MEQ/ML) IV ONE (00:16)
[2017-01-06] MEDS: ALBUTEROL NEBULIZED 2.5 MG/3 ML INHALATION SCH ×5 (00:35→20:07)
[2017-01-06] MEDS: MULTIVITAMINS, THERA 1 EACH TAB PO SCH ×2 (02:38→21:22)
[2017-01-06] MEDS: MAGNESIUM OXIDE 400 MG TAB PO SCH ×2 (02:38→21:22)
[2017-01-06] MEDS: SENNOSIDES 8.6 MG TAB PO SCH ×2 (02:39→21:22)
[2017-01-06] MEDS: LACTULOSE 20 GM/30 ML CUP PO SCH ×2 (02:39→21:22)
[2017-01-06] MEDS: PIPERACILLIN-TAZOBACTAM 3.375 GM in DEXTROSE/WATER 1 50ML.BAG IVPB SCH ×3 (02:40→16:22)
[2017-01-06] MEDS ORDERED: LEVOFLOXACIN 500MG-D5W PMX 500 MG in DEXTROSE/WATER 1 100ML.BAG IVPB SCH (03:00)
[2017-01-06] MEDS: SODIUM CHLORIDE 0.9% 1,000 ML IV SCH ×3 (04:38→16:00)
[2017-01-06 05:20] LABS: Anisocytosis Slight; CH 27.9; CHCM 28.9; HCT 44.8 % (34.0-46.0); HDW 2.58; HGB 13.2 gm/dL (11.4-16.0); Hypochromasia Marked; Immature Gran Flag Slight; MCH 28.5 pg (25.0-35.0); MCHC 29.4 g/dL (31.0-37.0); MCV 96.7 fL (80.0-100.0); Macrocytosis Slight; Mean Platelet Volume 7.1; RBC 4.63 m/uL (3.80-5.40); RDW 17.7 % (11.5-15.5); WBC 16.9 k/uL (3.8-10.6); WBC (Perox) 17.71
[2017-01-06 05:44] LABS: Anion Gap 11 mmol/L; Calcium 7.8 mg/dL (8.4-10.2); Carbon Dioxide 19 mmol/L (22-30); Chloride 108 mmol/L (98-107); Glucose 169 mg/dL (74-99); Non-African American GFR(MDRD) >60 (>60 ml/min/1.73 sqM); Sodium 138 mmol/L (137-145)
[2017-01-06 05:56] LABS: Blood Urea Nitrogen 32 mg/dL (7-17); Magnesium 1.6 mg/dL (1.6-2.3); Phosphorous 4.8 mg/dL (2.5-4.5); Potassium 5.2 mmol/L (3.5-5.1)
[2017-01-06 06:09] LABS: Add Differential Manual Differential
[2017-01-06 06:15] LABS: Band Neutrophils % 35.5 %; Manual Review Performed; Metamyelocytes % 0.5 %; Nucleated Red Blood Cells 0 /100 WBC (0-0); Total Cells Counted 200
[2017-01-06] MEDS: MAGNESIUM SULFATE-D5W PMX 1 GM in DEXTROSE/WATER 1 100ML.BAG IVPB SCH ×2 (06:31→08:19)
--- NOTE | 2017-01-06 07:21 | XR ---
EXAMINATION TYPE: XR chest 1V DATE OF EXAM: 01/06/2017 6:18 AM HISTORY: Shortness of breath. COMPARISON: 01/05/2017 TECHNIQUE: Single view of the chest is submitted. FINDINGS: Demonstrated are scattered senescent parenchymal change. There is no evidence for focal infiltrate. The heart is stable. Hilar and mediastinal structures are within normal limits. Degenerative changes are seen of the dorsal spine. IMPRESSION: 1. Chronic changes without evidence for acute pulmonary disease.
[2017-01-06] MEDS: FERROUS SULFATE 325 MG TAB PO SCH ×3 (08:21→21:23)
[2017-01-06] MEDS ORDERED: PANTOPRAZOLE 40 MG/10 ML VIAL IV SCH (09:00)
[2017-01-06] MEDS ORDERED: ENOXAPARIN 40 MG/0.4 ML SYRINGE SQ SCH (09:00)
[2017-01-06] MEDS: HYDROCORTISONE SUCCINATE 100 MG/2 ML VIAL IV SCH ×2 (11:00→16:22)
[2017-01-06] MEDS: SUCRALFATE 1 GM TAB PO SCH ×3 (12:47→21:23)
--- NOTE | 2017-01-06 14:16 | P.CNPUL ---
History of Present Illness Consult date: 01/06/17 Requesting physician: Ira Fernandez Reason for consult: other (Acute septic shock) Chief complaint: Elevated temperature, fever History of present illness: This is a 71-year-old female who is quite familiar to my service, patient is known to have history of recurrent episodes of cellulitis, urinary tract infections, and recurrent episodes of sepsis requiring ICU admission, at times patient responded to fluid boluses, and at times patient required fluid boluses plus pressors to maintain an adequate blood pressure. Often she even required Solu-Cortef for relative adrenal insufficiency presentation, and the patient is frequently in the hospital for similar episodes in the past. This time the patient presented to the ER by EMS complaining of not feeling well, admitting to having fatigue, fever, and denied any shortness of breath, no chest pain, no nausea no vomiting no abdominal pain. Patient is known to have chronic lymphedema and cellulitis of left lower extremity, and chronic cellulitis of the right lower extremity. Upon presentation, patient was noted to have elevated potassium of 6.4, elevated lactic acid of 3.9 and follow-up lactic acid was 4.9 follow-up was 4.7 and this is in spite of of fluid boluses given upon presentation. Her urinalysis was relatively unremarkable. And her troponin was relatively normal. Hypotension did not respond to fluid boluses, hence the patient was placed on norepinephrine, and presently she is on 8 g of norepinephrine. Her WBC count jumped from 9.2 on admission to 16.9 today. Her polymorphonuclear went up from 8.5-15.8. Review of Systems Constitutional: Reports: fever Eyes: Denies: eye pain ENT: Denies: ear pain Respiratory: Denies: cough Cardiovascular: Denies: chest pain Endocrine: Reports: fatigue Gastrointestinal: Denies: abdominal pain Genitourinary: Denies: dysuria Musculoskeletal: Denies: back pain Skin: Reports: rash Neurological: Denies: headache Past Medical History Past Medical History: Atrial Fibrillation, Chest Pain / Angina, Dementia, Eye Disorder, GERD/Reflux, Osteoarthritis (OA), Renal Disease, Thyroid Disorder, Vascular Disorder Additional Past Medical History / Comment(s): Chronic atrial fibrillation, dementia, osteoarthritis, chronic hypercapnic respiratory failure, morbid obesity, chronic lymphedema of the lower extremities with recurrent episodes of cellulitis, previous history of C. diff colitis, congestion heart failure, peripheral vascular disease, chronic hypotension, recurrent urine checked infections, osteoarthritis, the patient has a right-sided Mediport, paroxysmal atrial fibrillation, previous urine checked infection including infections with enterococcus, pseudomonas, Morganella morganii, E. coli, VRE. 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 History of Any Multi-Drug Resistant Organisms: MRSA, VRE Date of last positivie culture/infection: 12/03/2014-VRE; 09/28/2012-MRSA MDRO Source:: Urine-VRE; Abd Wound-MRSA Past Surgical History: Appendectomy, Back Surgery, Tonsillectomy Additional Past Surgical History / Comment(s): back surgery with laminectomy 2 , umbilical hernia repair in September 2012 followed by cellulitis and nonhealing wounds to the area, mediport R chest. Past Anesthesia/Blood Transfusion Reactions: No Reported Reaction Past Psychological History: Depression Additional Psychological History / Comment(s): This patient is . She is currently at the [facility]. She has a legal gaurdian-Anahi Cisneros [phone]. She gets up into a wheelchair with assistance. She needs assist with ADLs. She feeds herself. She has one son and one [id number] both they live in [place]. No travel hx, no pets, no service. Smoking Status: Never smoker Past Alcohol Use History: None Reported Additional Past Alcohol Use History / Comment(s): Patient is a lifelong nonsmoker. She denies any alcohol use or abuse. Past Drug Use History: None Reported - Past Family History Son(s) Family Medical History: Cancer Additional Family Medical History / Comment(s): Pt states her son has pelvic cancer with mets. Father History Unknown: Yes Family Medical History: Coronary Artery Disease (CAD) Additional Family Medical History / Comment(s): Father at 93 yrs of age. Mother History Unknown: Yes Family Medical History: Respiratory Disorder Additional Family Medical History / Comment(s): Mother in her 80's of a rare lung dx. Medications and Allergies Home Medications Medication Instructions Recorded Confirmed Type Omeprazole [PriLOSEC] 20 mg PO DAILY 11/06/14 01/05/17 History Multivitamins, Thera [Multivitamin 1 tab PO HS 03/13/15 01/05/17 History (formulary)] Acetaminophen [Tylenol] 650 mg PO Q4H PRN 04/22/15 01/05/17 History Rivaroxaban [Xarelto] 15 mg PO W/SUPPER 06/03/15 01/05/17 History Artificial Tears-Hypromellose 1 drops BOTH EYES TID PRN 09/15/15 01/05/17 History [Artificial Tear Drops] Citalopram Hydrobromide [CeleXA] 20 mg PO DAILY 01/31/16 01/05/17 History Midodrine HCl [ProAmatine] 5 mg PO DAILY 01/31/16 01/05/17 History Sucralfate [Carafate] 1 gm PO ACHS 01/31/16 01/05/17 History Allopurinol [Zyloprim] 300 mg PO DAILY 06/26/16 01/05/17 History Calcitriol [Rocaltrol] 0.25 mcg PO SA 06/26/16 01/05/17 History Ergocalciferol [Vitamin D2 50,000 unit PO WE 06/26/16 01/05/17 History (DRISDOL)] Ferrous Sulfate [Iron (65 MG 325 mg PO TID 06/26/16 01/05/17 History Elemental)] Magnesium Oxide [Mag-Ox] 400 mg PO HS 06/26/16 01/05/17 History Fluticasone Nasal [place] [Flonase 1 spr EA NOSTRIL DAILY 12/19/16 01/05/17 History Nasal [place]] Lactulose 20 gm PO HS 12/19/16 01/05/17 History Menthol [Biofreeze] 1 applic TOPICAL TID 12/19/16 01/05/17 History Sennosides [Senna] 17.2 mg PO HS 12/19/16 01/05/17 History prednisoLONE ACETATE [Pred Forte 1 drop RIGHT EYE DAILY 12/19/16 01/05/17 History 1%] Cefuroxime Axetil [Ceftin] 500 mg PO BID 01/05/17 01/05/17 History Dermaseptin 1 applic TOPICAL DAILY@0500 01/05/17 01/05/17 History Furosemide [Lasix] 20 mg PO DAILY 01/05/17 01/05/17 History Levothyroxine Sodium [Synthroid] 200 mcg PO DAILY 01/05/17 01/05/17 History cefTRIAXone [Rocephin] 1,000 mg IM ONCE 01/05/17 01/05/17 History Allergies Allergy/AdvReac Type Severity Reaction Status Date / Time vancomycin Allergy Anaphylaxis Verified 01/05/17 17:12 Physical Exam Vitals: Vital Signs Temp Pulse Pulse Resp BP BP Pulse Ox 01/06/17 13:00 76 20 111/54 95 01/06/17 12:00 98.9 F 79 22 104/53 96 01/06/17 11:00 82 23 92/54 97 01/06/17 10:00 80 16 111/57 97 01/06/17 09:00 78 18 120/53 01/06/17 08:00 98.6 F 77 22 100/50 98 01/06/17 07:00 76 18 144/69 96 01/06/17 06:00 76 19 110/53 97 01/06/17 05:00 77 19 111/56 97 01/06/17 04:00 98.5 F 77 92 18 130/63 97 01/06/17 03:30 81 21 118/50 99 01/06/17 03:00 80 20 107/48 97 01/06/17 02:30 75 22 146/63 98 01/06/17 02:00 73 21 87/47 97 01/06/17 01:40 79 21 82/52 01/06/17 01:20 80 21 96/54 01/06/17 01:00 81 20 77/48 98 01/06/17 00:40 81 21 90/51 01/06/17 00:38 81 01/06/17 00:26 79 01/06/17 00:20 81 21 120/80 01/06/17 00:00 83 92 18 71/49 99 01/05/17 23:40 98.7 F 84 20 80/51 98 01/05/17 21:03 98.9 F 98 20 94/53 98 01/05/17 19:38 99.6 F 92 20 100/54 97 01/05/17 19:32 97.4 F L 92 18 93/54 95 Intake and Output 01/05/17 01/06/17 01/06/17 22:59 06:59 14:59 Intake Total 3600 1251.25 619.437 Output Total 320 280 Balance 3600 931.25 339.437 Intake: IV 1000 412.5 Calcium Gluconate 1,000 100 mg In Sodium Chloride 0.9 % 100 ml @ 100 mls/hr IVPB ONCE ONE Rx#: [id number] Levofloxacin 500Mg-D5w 100 Pmx 500 mg In Dextrose/ Water 1 100ml.bag @ 100 mls/hr IVPB Q24H [facility] Rx#: [id number] Magnesium Sulfate-D5w Pmx 100 100 1 gm In Dextrose/Water 1 100ml.bag @ 100 mls/hr IVPB Q1H [facility] Rx#: [id number] Piperacillin-Tazobactam 3 62.5 .375 gm In Dextrose/Water 1 50ml.bag @ 12.5 mls/hr IVPB Q8HR [facility] Rx#: [id number] Sodium Chloride 0.9% 1, 700 250 000 ml @ 100 mls/hr IV . Q10H [facility] Rx#:[id number] Intake, IV Titration 3600 251.25 206.937 Amount DAPTOmycin 500 mg In 500 Sodium Chloride 0.9% 50 ml @ 100 mls/hr IV ONCE ONE Rx#:[id number] Norepinephrin 4 mg-0.9% 251.25 206.937 Ns Pmx 4 mg In 250 ml @ Titrate IV .Q0M [facility] Rx#: [id number] Sodium Chloride 0.9% 1, 100 000 ml @ 100 mls/hr IV . Q10H [facility] Rx#:[id number] Sodium Chloride 0.9% 1, 1000 000 ml @ 999 mls/hr IV . Q1H1M [facility] Rx#:[id number] Sodium Chloride 0.9% 1, 1000 000 ml @ 999 mls/hr IV . Q1H1M [facility]A Rx#:[id number] Sodium Chloride 0.9% 500 500 ml @ 1000 mls/hr IV Q35M [facility] Rx#:[id number] Sodium Chloride 0.9% 500 500 ml @ 999 mls/hr IV .Q31M [facility] Rx#:[id number] Output: Urine 320 280 Other: Voiding Method Indwelling Catheter Indwelling Catheter Weight 86.28 kg Physical Exam: Revealed a 71-year-old female in no distress. HEENT:[Neck is supple.] [No neck masses.] [No thyromegaly.] [No JVD.] Chest: [Clear throughout, no crackles, no rhonchi, no wheezes.] Cardiac Exam: [Normal S1 and S2, no S3 gallop, no murmur.] Abdomen: [Soft, nontender, no megaly, no rebound, no guarding, normal bowel sounds.] Extremities: [Lymphedema and cellulitis of the left lower extremity was noted, cellulitis of the distal right lower extremity was also noted. The right lower extremity rash seems to be mild..] Neurological Exam: [No focal neurologic deficit.] Results - Laboratory Findings CBC and BMP: 01/06/17 04:52 01/06/17 04:52 PT/INR, D-dimer PT 11.5 sec (9.0-12.0) 01/05/17 17:05 INR 1.2 (<1.1) 01/05/17 17:05 Abnormal lab findings: Abnormal Labs 01/05/17 01/06/17 01/06/17 20:46 04:52 04:52 WBC 16.9 H MCHC 29.4 L RDW 17.7 H Neutrophils # (Manual) 15.8 H Lymphocytes # (Manual) 0.5 L Potassium 5.2 H Chloride 108 H Carbon Dioxide 19 L BUN 32 H Glucose 169 H Plasma Lactic Acid Deandre 4.9 H* Calcium 7.8 L Phosphorus 4.8 H 01/06/17 04:52 WBC MCHC RDW Neutrophils # (Manual) Lymphocytes # (Manual) Potassium Chloride Carbon Dioxide BUN Glucose Plasma Lactic Acid Deandre 4.7 H* Calcium Phosphorus - Diagnostic Findings Chest x-ray: image reviewed (Chronic changes, no evidence of acute pulmonary disease noted.) Assessment and Plan Plan: Impression: 1 acute septic shock secondary to cellulitis. Skin cultures and blood cultures are pending. 2 history of recurrent urinary tract infections, cultures are pending. 3 chronic lymphedema of lower extremities especially left lower extremity. 4 history of sacral decubitus ulcer. 5 history of C. 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 14 history of adrenal insufficiency Recommendation: Continue present antibiotics, infectious disease was consulted, patient is presently on Levaquin and Zosyn and daptomycin. Continue fluids, continue norepinephrine, and patient will be given stress doses of Solu-Cortef. We'll continue to follow. Patient is critically ill, but relatively stable. Time with Patient: Greater than 30
--- NOTE | 2017-01-06 16:52 | HP ---
DATE OF ADMISSION: Patient is a 71-year-old who had ( ) multiple episodes of sepsis requiring ICU admissions and patient at this time came in in septic shock requiring Levophed, and the most possible source of infection is left leg again. Patient has a lymphatic drain in place, draining quite a bit; has increased redness and swelling. Patient in the past was treated for urinary tract infection. Her urine cultures are essentially within normal limits. Patient does not appear to have pneumonia. Patient's lactic acid is highly elevated at 6.4; now came down to 4.9, and patient is receiving IV fluids and Levophed. Patient is also on stress doses of steroids. WBC count has gone up and Infectious Disease was consulted. Patient is a resident in a long-term correction facility, where they found patient has increased redness, swelling and fever. REVIEW OF SYSTEMS: GENERAL: As described in HPI. CONSTITUTIONAL: No fever, no malaise, no fatigue. HEENT: No recent visual problems or hearing problems. Denied any sore throat. CARDIOVASCULAR: No chest pain, orthopnea, PND, no palpitations, no syncope. PULMONARY: No shortness of breath, no cough, no hemoptysis. GASTROINTESTINAL: No diarrhea, no nausea, no vomiting, no abdominal pain. Normoactive bowel sounds. NEUROLOGICAL: No headaches, no weakness, no numbness. HEMATOLOGICAL: Denies any bleeding or petechiae. GENITOURINARY: Denies any burning micturition, frequency, or urgency. MUSCULOSKELETAL/RHEUMATOLOGICAL: Denies any joint pain, swelling, or any muscle pain. ENDOCRINE: Denies any polyuria or polydipsia. DERMATOLOGIC: As described in HPI. The rest of the 14 point review of systems is negative. Past medical history is significant for: 1. Atrial fibrillation. 2. Gastroesophageal reflux disease. 3. Renal disease. 4. Dementia. 5. Osteoarthritis. 6. Lymphedema. 7. Multiple admissions for same cellulitis and sepsis. Home medications include: 1. Omeprazole. 2. Acetaminophen. 3. Rivaroxaban. 4. Xarelto for atrial fibrillation. 5. Citalopram. 6. Midodrine. 7. Sucralfate. 8. Allopurinol. 9. Calcitriol. 10. Ergocalciferol. 11. Ferrous sulfate. 12. Fluticasone. 13. Lactulose. 14. Menthol. 15. Senna. 16. Prednisolones. 17. Cefuroxime. 18. Dermaseptin. 19. Lasix. SURGICAL HISTORY: 1. Back surgery. 2. Laminectomy. FAMILY HISTORY: Mother had some kind of respiratory disorder. PHYSICAL EXAMINATION: VITAL SIGNS: Temperature 98.9, pulse of 76, respiratory rate of 20. Blood pressure is 111/54. Saturating at 95% on 2 L of oxygen by nasal cannula. GENERAL: Patient is not in acute respiratory distress. HEENT: Pupils are round and equally reacting to light. EOMI. No scleral icterus. No conjunctival pallor. Normocephalic, atraumatic. No pharyngeal erythema. No thyromegaly. CARDIOVASCULAR: S1 and S2 present. No murmurs, rubs, or gallops. PULMONARY: Chest is clear to auscultation, no wheezing or crackles. ABDOMEN: Soft, nontender, nondistended, normoactive bowel sounds. No palpable organomegaly. MUSCULOSKELETAL: No joint swelling or deformity. EXTREMITIES: Left lower limb is significantly edematous. Patient has a drain in the pelvic area, which is a lymphatic drain. Patient has significant edema, cellulitis of the left lower abdomen with pitting edema, localization of temperature. NEUROLOGICAL: Gross neurological examination did not reveal any focal deficits. SKIN: No rashes. ALLERGIES: VANCOMYCIN, because of which patient is on daptomycin. LABORATORY DATA: Significant for elevated WBC count of 16,900. Potassium was 6.4; now came down to 5.2 after aggressive IV fluid resuscitation and treating with Kayexalate. Kidney function is actually within normal limits. Plasma lactic is 4.7. UA is essentially within normal limits. Chest x-ray did not show any significant pneumonic process. ASSESSMENT AND PLAN: 1. Septic shock secondary to left lower limb lymphedema. Patient has had multiple admissions for the same reason. Patient is on broad-spectrum antibiotics that is Zosyn and daptomycin because of her ALLERGY TO VANCOMYCIN. 2. Leukocytosis secondary to severe sepsis. 3. Lactic acidosis secondary to sepsis and septic shock. 4. Hypovolemic hyponatremia. 5. Elevated potassium, which improved, which is again secondary to significant metabolic acidosis. 6. Chronic lymphedema of the left lower extremity. 7. Peripheral vascular disease. 8. Obesity. 9. Hypothyroidism. 10. Restless leg syndrome. PLAN: Antibiotics as mentioned above. Wean down the pressor support. Infectious disease consult. Blood cultures were obtained.
[2017-01-06] MEDS ORDERED: RIVAROXABAN 15 MG TAB PO SCH (17:30)
[2017-01-06] MEDS ORDERED: DAPTOmycin 500 MG in SODIUM CHLORIDE 0.9% 50 ML IV SCH (18:00)
--- NOTE | 2017-01-06 21:18 | P.CONS ---
History of Present Illness - Reason for Consult Consult date: 01/06/17 - Chief Complaint Fever and sepsis - History of Present Illness 71-year-old female who is well-known to the infectious disease service or she's had hospitalization for multiple bouts of left leg cellulitis with sepsis as well as urinary tract infections. She has been on intermittent chronic antibiotic suppressive therapy with cefuroxime to prevent further bouts of the cellulitis and sepsis from the lower extremity and the left. As related she had a injury, delivery of her son which resulted in the chronic lymphedema to the left limb. This resulted in the multiple bouts of cellulitis and sepsis ensued. Consequently chronic antibiotic therapy has been utilized and she has been somewhat better. However she does have dementia. Multiple urinary tract infections do continue to occur. 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 The patient presents from [facility] care facility because she started to feel poorly. Having increasing fever and chill and generalized malaise. With her bouts of multiple sepsis in the past she was sent to the emergency center. There she had evidence of hypotension has received resuscitation and was admitted to the intensive care unit for her sepsis. Receiving vasopressor therapy for her sepsis. A new finding has been of the extensive lymphedema drainage from a opening onto the left lower lateral flank area. An ostomy pouches been applied which is collecting a large amount of the lymphedema fluid. It is helping her skin stay dry in the area though. She is feeling somewhat better. Ate more than half of her dinner. Her pain is about at baseline. Review of Systems HEENT:Denies headache or acute visual change. Denies sinus or mouth discomforts. Denies neck stiffness or pain. Denies significant oral cavity pain. Denies difficulty on swallowing. Lungs: Denies significant shortness of breath, cough, sputum production, or hemoptysis. Cardiovascular: Denies significant shortness of breath, chest pain, chest wall pain, orthopnea, dyspnea on exertion, syncope Gastrointestinal: Admission had nausea and emesis has now resolved. Eating her meals without difficulty. Denies diarrhea. Musculoskeletal: denies significant myalgias or arthralgias. No new joint swelling. Denies new back pain. The chronic swelling to her left leg is under good control with the current multilayer wrap and chronic zinc-based cream has been applied that has prevented the multiple bouts of cellulitis in the recent past. Skin: Denies new rash or lesions. No new ulcers or wounds are related.. Neuro: Denies headache or visual change. Denies any new onset weakness or difficulty with ambulation. Denies falls or seizures. Psychiatric:Denies anxiety or depression. Endocrine: Significant fatigue and some weight gain. Past Medical History Past Medical History: Atrial Fibrillation, Chest Pain / Angina, Dementia, Eye Disorder, GERD/Reflux, Osteoarthritis (OA), Renal Disease, Thyroid Disorder, Vascular Disorder Additional Past Medical History / Comment(s): Chronic atrial fibrillation, dementia, osteoarthritis, chronic hypercapnic respiratory failure, morbid obesity, chronic lymphedema of the lower extremities with recurrent episodes of cellulitis, previous history of C. diff colitis, congestion heart failure, peripheral vascular disease, chronic hypotension, recurrent urine checked infections, osteoarthritis, the patient has a right-sided Mediport, paroxysmal atrial fibrillation, previous urine checked infection including infections with enterococcus, pseudomonas, Morganella morganii, E. coli, VRE. 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 Past Anesthesia/Blood Transfusion Reactions: No Reported Reaction Past Psychological History: Depression Additional Psychological History / Comment(s): This patient is . She is currently at the [facility]. She has a legal [employer] [place] [phone]. She gets up into a wheelchair with assistance. She needs assist with ADLs. She feeds herself. She has one son and one [id number] both they live in [place]. No travel hx, no pets, no service. Smoking Status: Never smoker Past Alcohol Use History: None Reported Additional Past Alcohol Use History / Comment(s): Patient is a lifelong nonsmoker. She denies any alcohol use or abuse. Past Drug Use History: None Reported - Past Family History Son(s) Family Medical History: Cancer Additional Family Medical History / Comment(s): Pt states her son has pelvic cancer with mets. Father History Unknown: Yes Family Medical History: Coronary Artery Disease (CAD) Additional Family Medical History / Comment(s): Father at 93 yrs of age. Mother History Unknown: Yes Family Medical History: Respiratory Disorder Additional Family Medical History / Comment(s): Mother in her 80's of a rare lung dx. Medications and Allergies Home Medications and Allergies Comment(s): Current Medications Acetaminophen (Tylenol Tab) 650 mg PO Q6HR PRN PRN Reason: Mild Pain or Fever > 100.5 Last Admin: 01/06/17 16:27 Dose: 650 mg Albuterol Sulfate (Ventolin Nebulized) 2.5 mg INHALATION RT-QID [facility] Last Admin: 01/06/17 20:07 Dose: Not Given Albuterol Sulfate (Ventolin Nebulized) 2.5 mg INHALATION RT-Q2H PRN PRN Reason: Shortness Of Breath Or Wheezing Artificial Tears (Artificial Tear Drops) 1 drops BOTH EYES TID PRN PRN Reason: DRY EYES Calcitriol (Rocaltrol) 0.25 mcg PO SA [facility] Citalopram Hydrobromide (Celexa) 20 mg PO DAILY [facility] Ergocalciferol (Vitamin D2) 50,000 unit PO WE [facility] Ferrous Sulfate (Feosol) 325 mg PO TID [facility] Last Admin: 01/06/17 16:22 Dose: 325 mg Hydrocortisone Sodium Succinate (Solu-Cortef) 100 mg IV Q8HR [facility] Last Admin: 01/06/17 16:22 Dose: 100 mg Piperacillin/Tazobactam/ (Dextrose 3.375 gm/ IV Solution) 50 mls @ 12.5 mls/hr IVPB Q8HR [facility] Last Admin: 01/06/17 16:22 Dose: 12.5 mls/hr Daptomycin 500 mg/ Sodium (Chloride) 50 mls @ 100 mls/hr IV Q24H [facility] Last Admin: 01/06/17 17:37 Dose: 100 mls/hr Sodium Chloride (Saline 0.9%) 1,000 mls @ 100 mls/hr IV .Q10H [facility] Last Admin: 01/06/17 16:00 Dose: 100 mls/hr Norepinephrine Bitartrate (Levophed-0.9% Nacl 4 Mg/250ml Pmx) 4 mg in 250 mls @ 0 mls/hr IV .Q0M [facility]; Titrate PRN Reason: Protocol Last Admin: 01/06/17 17:22 Dose: 11 mcg/min, 41.25 mls/hr Lactulose (Cephulac) 20 gm PO [facility] Last Admin: 01/06/17 02:39 Dose: Not Given Levothyroxine Sodium (Synthroid) 200 mcg PO DAILY@0630 [facility] Magnesium Oxide (Mag-Ox) 400 mg PO [facility] Last Admin: 01/06/17 02:38 Dose: Not Given Multivitamins (Theragran) 1 each PO [facility] Last Admin: 01/06/17 02:38 Dose: Not Given Naloxone HCl (Narcan) 0.2 mg IV Q2M PRN PRN Reason: Opioid Reversal Pantoprazole Sodium (Protonix) 40 mg PO DAILY [facility] Rivaroxaban (Xarelto) 15 mg PO W/SUPPER [facility] Last Admin: 01/06/17 17:24 Dose: 15 mg Senna (Senokot) 17.2 mg PO [facility] Last Admin: 01/06/17 02:39 Dose: Not Given Sucralfate (Carafate) 1 gm PO [facility] Last Admin: 01/06/17 17:25 Dose: 1 gm Home Medications Medication Instructions Recorded Confirmed Type Omeprazole [PriLOSEC] 20 mg PO DAILY 11/06/14 01/05/17 History Multivitamins, Thera [Multivitamin 1 tab PO HS 03/13/15 01/05/17 History (formulary)] Acetaminophen [Tylenol] 650 mg PO Q4H PRN 04/22/15 01/05/17 History Rivaroxaban [Xarelto] 15 mg PO W/SUPPER 06/03/15 01/05/17 History Artificial Tears-Hypromellose 1 drops BOTH EYES TID PRN 09/15/15 01/05/17 History [Artificial Tear Drops] Citalopram Hydrobromide [CeleXA] 20 mg PO DAILY 01/31/16 01/05/17 History Midodrine HCl [ProAmatine] 5 mg PO DAILY 01/31/16 01/05/17 History Sucralfate [Carafate] 1 gm PO ACHS 01/31/16 01/05/17 History Allopurinol [Zyloprim] 300 mg PO DAILY 06/26/16 01/05/17 History Calcitriol [Rocaltrol] 0.25 mcg PO SA 06/26/16 01/05/17 History Ergocalciferol [Vitamin D2 50,000 unit PO WE 06/26/16 01/05/17 History (DRISDOL)] Ferrous Sulfate [Iron (65 MG 325 mg PO TID 06/26/16 01/05/17 History Elemental)] Magnesium Oxide [Mag-Ox] 400 mg PO HS 06/26/16 01/05/17 History Fluticasone Nasal [place] [Flonase 1 spr EA NOSTRIL DAILY 12/19/16 01/05/17 History Nasal [place]] Lactulose 20 gm PO HS 12/19/16 01/05/17 History Menthol [Biofreeze] 1 applic TOPICAL TID 12/19/16 01/05/17 History Sennosides [Senna] 17.2 mg PO HS 12/19/16 01/05/17 History prednisoLONE ACETATE [Pred Forte 1 drop RIGHT EYE DAILY 12/19/16 01/05/17 History 1%] Cefuroxime Axetil [Ceftin] 500 mg PO BID 01/05/17 01/05/17 History Dermaseptin 1 applic TOPICAL DAILY@0500 01/05/17 01/05/17 History Furosemide [Lasix] 20 mg PO DAILY 01/05/17 01/05/17 History Levothyroxine Sodium [Synthroid] 200 mcg PO DAILY 01/05/17 01/05/17 History cefTRIAXone [Rocephin] 1,000 mg IM ONCE 01/05/17 01/05/17 History Allergies Allergy/AdvReac Type Severity Reaction Status Date / Time vancomycin Allergy Anaphylaxis Verified 01/05/17 17:12 Physical Exam Vitals: Vital Signs Temp Pulse Pulse Resp BP Pulse Ox 01/06/17 19:00 76 23 114/60 94 L 01/06/17 18:00 72 26 H 120/63 97 01/06/17 17:00 73 21 118/65 99 01/06/17 16:00 97.5 F L 73 26 H 120/60 95 01/06/17 15:00 73 23 119/57 96 01/06/17 14:00 74 21 116/62 96 01/06/17 13:00 76 20 111/54 95 01/06/17 12:00 98.9 F 79 22 104/53 96 01/06/17 11:00 82 23 92/54 97 01/06/17 10:00 80 16 111/57 97 01/06/17 09:00 78 18 120/53 01/06/17 08:00 98.6 F 77 22 100/50 98 01/06/17 07:00 76 18 144/69 96 01/06/17 06:00 76 19 110/53 97 01/06/17 05:00 77 19 111/56 97 01/06/17 04:00 98.5 F 77 92 18 130/63 97 01/06/17 03:30 81 21 118/50 99 01/06/17 03:00 80 20 107/48 97 01/06/17 02:30 75 22 146/63 98 01/06/17 02:00 73 21 87/47 97 01/06/17 01:40 79 21 82/52 01/06/17 01:20 80 21 96/54 01/06/17 01:00 81 20 77/48 98 01/06/17 00:40 81 21 90/51 01/06/17 00:38 81 01/06/17 00:26 79 01/06/17 00:20 81 21 120/80 01/06/17 00:00 83 92 18 71/49 99 01/05/17 23:40 98.7 F 84 20 80/51 98 Intake and Output 01/06/17 01/06/17 01/06/17 06:59 14:59 22:59 Intake Total 1251.25 839.437 605.0 Output Total 320 385 249 Balance 931.25 454.437 356.0 Intake: IV 1000 632.5 355.0 Calcium Gluconate 1,000 100 mg In Sodium Chloride 0.9 % 100 ml @ 100 mls/hr IVPB ONCE ONE Rx#: [id number] Levofloxacin 500Mg-D5w 100 Pmx 500 mg In Dextrose/ Water 1 100ml.bag @ 100 mls/hr IVPB Q24H [facility] Rx#: [id number] Magnesium Sulfate-D5w Pmx 100 100 1 gm In Dextrose/Water 1 100ml.bag @ 100 mls/hr IVPB Q1H [facility] Rx#: [id number] Piperacillin-Tazobactam 3 62.5 25.0 .375 gm In Dextrose/Water 1 50ml.bag @ 12.5 mls/hr IVPB Q8HR [facility] Rx#: [id number] Sodium Chloride 0.9% 1, 700 470 330 000 ml @ 100 mls/hr IV . Q10H [facility] Rx#:[id number] Intake, IV Titration 251.25 206.937 250 Amount Norepinephrin 4 mg-0.9% 251.25 206.937 250 Ns Pmx 4 mg In 250 ml @ Titrate IV .Q0M [facility] Rx#: [id number] Output: Drainage 150 Left Lateral Abdomen 150 Urine 320 385 99 Other: Voiding Method Indwelling Catheter Indwelling Catheter Indwelling Catheter 71-year-old female who appears to be in no distress at this point in time. Seems to be somewhat improved from the time of her admission. However is still hypotension requiring vasopressor therapy that is being titrated down HEENT: Anicteric conjunctiva are pink and moist nasal mucosa grossly intact without significant lesions, there is no thrush. Neck: The neck is supple without significant lymphadenopathy or thyromegaly. Lungs: Good bilateral air entry without significant crackles or wheezing. There is no significant bronchial sounds. There is no egophony or dullness. Heart: Regular rate and rhythm with an audible S1-S2, no S3 no S4. There is no significant murmur click or rub, PMI was nondisplaced. Abdomen: Obese, Positive bowel sounds soft and nontender without palpable masses or organomegaly. There was no guarding or rebound. Extremities: Left arm at site of prior IVs without difficulty. The right arm was without difficulties. The right leg is without difficulties. The left lower extremity has the chronic lymphedema. There is the chronic edema. There is minimal erythema and minimal warmth the limb. There is minimal erythema to the lower abdominal wall contiguous with the thigh. Has evidence of the opening with the drainage of the gross amount of the lymph fluid from that left lateral flank area. The ostomy pouches in place collecting the high-volume of the lymph fluid. This is helping her skin with less irritation since is not so moist. The erythema does not seem to be considerably different than baseline. She has mild edema and minimal redness to the right lower extremity also about her baseline. Neuro: Awake alert oriented to person place and time. There are no acute new gross focal sensory motor deficits. She is nearly blind though. Results CBC & Chem 7: 01/06/17 04:52 01/06/17 04:52 Labs: Abnormal Lab Results - Last 24 Hours (Table) 01/05/17 01/06/17 01/06/17 Range/Units 20:46 04:52 04:52 WBC 16.9 H (3.8-10.6) k/uL MCHC 29.4 L (31.0-37.0) g/dL RDW 17.7 H (11.5-15.5) % Neutrophils # (Manual) 15.8 H (1.3-7.7) k/uL Lymphocytes # (Manual) 0.5 L (1.0-4.8) k/uL Potassium 5.2 H (3.5-5.1) mmol/L Chloride 108 H (98-107) mmol/L Carbon Dioxide 19 L (22-30) mmol/L BUN 32 H (7-17) mg/dL Glucose 169 H (74-99) mg/dL Plasma Lactic Acid Deandre 4.9 H* (0.7-2.0) mmol/L Calcium 7.8 L (8.4-10.2) mg/dL Phosphorus 4.8 H (2.5-4.5) mg/dL 01/06/17 Range/Units 04:52 WBC (3.8-10.6) k/uL MCHC (31.0-37.0) g/dL RDW (11.5-15.5) % Neutrophils # (Manual) (1.3-7.7) k/uL Lymphocytes # (Manual) (1.0-4.8) k/uL Potassium (3.5-5.1) mmol/L Chloride (98-107) mmol/L Carbon Dioxide (22-30) mmol/L BUN (7-17) mg/dL Glucose (74-99) mg/dL Plasma Lactic Acid Deandre 4.7 H* (0.7-2.0) mmol/L Calcium (8.4-10.2) mg/dL Phosphorus (2.5-4.5) mg/dL Laboratory Results WBC 16.9 k/uL (3.8-10.6) H 01/06/17 04:52 RBC 4.63 m/uL (3.80-5.40) 01/06/17 04:52 Hgb 13.2 gm/dL (11.4-16.0) 01/06/17 04:52 Hct 44.8 % (34.0-46.0) 01/06/17 04:52 MCV 96.7 fL (80.0-100.0) 01/06/17 04:52 MCH 28.5 pg (25.0-35.0) 01/06/17 04:52 MCHC 29.4 g/dL (31.0-37.0) L 01/06/17 04:52 RDW 17.7 % (11.5-15.5) H 01/06/17 04:52 Plt Count 307 k/uL (150-450) 01/06/17 04:52 Neutrophils % (Manual) 58.0 % 01/06/17 04:52 Band Neutrophils % 35.5 % 01/06/17 04:52 Lymphocytes % (Manual) 3.0 % 01/06/17 04:52 Monocytes % (Manual) 2.5 % 01/06/17 04:52 Eosinophils % (Manual) 0.5 % 01/06/17 04:52 Metamyelocytes % 0.5 % 01/06/17 04:52 Neutrophils # (Manual) 15.8 k/uL (1.3-7.7) H 01/06/17 04:52 Lymphocytes # (Manual) 0.5 k/uL (1.0-4.8) L 01/06/17 04:52 Monocytes # (Manual) 0.4 k/uL (0-1.0) 01/06/17 04:52 Eosinophils # (Manual) 0.1 k/uL (0-0.7) 01/06/17 04:52 Nucleated RBCs 0 /100 WBC (0-0) 01/06/17 04:52 Manual Slide Review Performed 01/06/17 04:52 Polychromasia Present 01/05/17 17:05 Hypochromasia Marked 01/06/17 04:52 Poikilocytosis (manual Present 01/06/17 04:52 Anisocytosis Slight 01/06/17 04:52 Anisocytosis (manual) Present 01/06/17 04:52 Macrocytosis Slight 01/06/17 04:52 PT 11.5 sec (9.0-12.0) 01/05/17 17:05 INR 1.2 (<1.1) 01/05/17 17:05 APTT 22.6 sec (22.0-30.0) 01/05/17 17:05 Sodium 138 mmol/L (137-145) 01/06/17 04:52 Potassium 5.2 mmol/L (3.5-5.1) H 01/06/17 04:52 Chloride 108 mmol/L (98-107) H 01/06/17 04:52 Carbon Dioxide 19 mmol/L (22-30) L 01/06/17 04:52 Anion Gap 11 mmol/L 01/06/17 04:52 BUN 32 mg/dL (7-17) H 01/06/17 04:52 Creatinine 0.90 mg/dL (0.52-1.04) 01/06/17 04:52 Est GFR (MDRD) Af Amer >60 (>60 ml/min/1.73 sqM) 01/06/17 04:52 Est GFR (MDRD) Non-Af >60 (>60 ml/min/1.73 sqM) 01/06/17 04:52 Glucose 169 mg/dL (74-99) H 01/06/17 04:52 Plasma Lactic Acid Deandre 4.7 mmol/L (0.7-2.0) H* 01/06/17 04:52 Calcium 7.8 mg/dL (8.4-10.2) L 01/06/17 04:52 Phosphorus 4.8 mg/dL (2.5-4.5) H 01/06/17 04:52 Magnesium 1.6 mg/dL (1.6-2.3) 01/06/17 04:52 Total Bilirubin 0.5 mg/dL (0.2-1.3) 01/05/17 17:05 AST 31 U/L (14-36) 01/05/17 17:05 ALT 24 U/L (9-52) 01/05/17 17:05 Alkaline Phosphatase 78 U/L (38-126) 01/05/17 17:05 Troponin I <0.012 ng/mL (0.000-0.034) 01/06/17 00:51 Total Protein 5.0 g/dL (6.3-8.2) L 01/05/17 17:05 Albumin 2.3 g/dL (3.5-5.0) L 01/05/17 17:05 Urine Color Yellow 01/05/17 18:55 Urine Appearance Clear (Clear) 01/05/17 18:55 Urine pH 5.5 (5.0-8.0) 01/05/17 18:55 Ur Specific [place] 1.012 (1.001-1.035) 01/05/17 18:55 Urine Protein Negative (Negative) 01/05/17 18:55 Urine Glucose (UA) Negative (Negative) 01/05/17 18:55 Urine Ketones Negative (Negative) 01/05/17 18:55 Urine Blood Negative (Negative) 01/05/17 18:55 Urine Nitrite Negative (Negative) 01/05/17 18:55 Urine Bilirubin Negative (Negative) 01/05/17 18:55 Urine Urobilinogen <2.0 mg/dL (<2.0) 01/05/17 18:55 Ur Leukocyte Esterase Negative (Negative) 01/05/17 18:55 Microbiology 01/05/17 17:05 Abdomen Gram Stain - Preliminary 01/05/17 17:05 Abdomen Wound Culture - Preliminary Gram Neg Bacilli 01/05/17 17:05 Blood Blood Culture - Preliminary No Growth after 24 hours 01/05/17 18:55 Urine,Catheterized Urine Culture - Preliminary Assessment and Plan (1) Severe sepsis with septic shock Narrative/Plan: 71-year-old woman presents from [facility] facility where she became somewhat acutely ill. She's had this on multiple episodes in the past. She has chronic urinary infections and develops bouts of sepsis related to urinary system. He has also had bouts of sepsis related to the significant cellulitis and lymph angitis to the left leg going to the abdominal wall. Was recently hospitalized for she had evidence of an E. coli that is an ESBL. She is being treated with antibiotic therapy. The had recurrence of her sepsis occurring a relatively short period time since her recent hospital stay. Concern that the ESBL E. coli could be part of the difficulty. Constantly will change the Zosyn to meropenem until we have some further data. Daptomycin is being utilized for her cellulitis process and lymphangitis to the left flank area. The current pouches in place may be converted to a urostomy pouch with urostomy bag when this needs to be changed we will hold a much higher volume in the small bag it's been applied. It is distinctly helping her skin though. Urine and blood cultures are pending. Does not appear to have pneumonia Her vasopressor therapy is being weaned and has had adequate fluid resuscitation. Very high lactic acidosis is improved She's feeling better. Status: Acute
[2017-01-07] MEDS: MEROPENEM 1 GM in SODIUM CHLORIDE 0.9% 100 ML IVPB SCH ×2 (00:06→08:20)
[2017-01-07] MEDS: HYDROCORTISONE SUCCINATE 100 MG/2 ML VIAL IV SCH ×2 (00:06→08:20)
[2017-01-07 05:48] LABS: Anisocytosis Slight; Basophils % (A) 0 %; CH 28.1; CHCM 29.7; Eosinophils % (A) 0 %; HCT 42.7 % (34.0-46.0); HDW 2.66; HGB 12.4 gm/dL (11.4-16.0); Hypochromasia Marked; Luc # (Auto) 0.05; Luc % (Auto) 0; Lymphocytes # (A) 0.2 k/uL (1.0-4.8); Lymphocytes % (A) 2 %; MCH 27.6 pg (25.0-35.0); MCHC 29.1 g/dL (31.0-37.0); Mean Platelet Volume 7.1; Monocytes # (A) 0.4 k/uL (0-1.0); Monocytes % (A) 3 %; Neutrophils # (A) 12.9 k/uL (1.3-7.7); Neutrophils % (A) 95 %; RBC 4.49 m/uL (3.80-5.40); RDW 17.7 % (11.5-15.5); WBC 13.6 k/uL (3.8-10.6)
[2017-01-07 06:03] LABS: Anion Gap 7 mmol/L; Blood Urea Nitrogen 23 mg/dL (7-17); Calcium 7.3 mg/dL (8.4-10.2); Carbon Dioxide 19 mmol/L (22-30); Chloride 110 mmol/L (98-107); Glucose 223 mg/dL (74-99); Magnesium 2.1 mg/dL (1.6-2.3); Non-African American GFR(MDRD) >60 (>60 ml/min/1.73 sqM); Phosphorous 4.1 mg/dL (2.5-4.5); Potassium 3.3 mmol/L (3.5-5.1); Sodium 136 mmol/L (137-145)
[2017-01-07] MEDS ORDERED: LEVOTHYROXINE 100 MCG TAB PO SCH (06:30)
[2017-01-07] MEDS: SODIUM CHLORIDE 0.9% 1,000 ML IV SCH ×2 (06:49→11:36)
[2017-01-07] MEDS: NOREPINEPHRIN 4 MG-0.9% NS PMX 4 MG/250 ML ML IV SCH (06:49)
[2017-01-07] MEDS: POTASSIUM CHLORIDE ER 20 MEQ TAB.ER PO SCH ×2 (07:37→09:23)
[2017-01-07] MEDS: ALBUTEROL NEBULIZED 2.5 MG/3 ML INHALATION SCH ×3 (07:55→15:35)
--- NOTE | 2017-01-07 08:10 | XR ---
EXAMINATION TYPE: XR chest 1V DATE OF EXAM: 01/07/2017 6:42 AM HISTORY: shortness of breath. REFERENCE: Previous study dated 01/06/2017. FINDINGS: There is a MediPort in place on the right. The tip is in the superior vena cava. Heart size upper limits of normal. There has developed some atelectatic change at the left lung base. No definite pleural fluid is seen. IMPRESSION: 1. BORDERLINE CARDIOMEGALY. 2. ATELECTATIC CHANGE, LEFT LUNG BASE.
[2017-01-07] MEDS: SUCRALFATE 1 GM TAB PO SCH ×2 (08:20→13:35)
[2017-01-07] MEDS: FERROUS SULFATE 325 MG TAB PO SCH (08:21)
[2017-01-07] MEDS ORDERED: CITALOPRAM HYDROBROMIDE 20 MG TAB PO SCH (09:00)
[2017-01-07] MEDS ORDERED: PANTOPRAZOLE 40 MG TABLET PO SCH (09:00)
[2017-01-07 09:23] VITALS: TEMP 97.7
[2017-01-07] MEDS ORDERED: SODIUM CHLORIDE 0.9% 1,000 ML IV ONE (11:34)
[2017-01-07 11:59] LABS: Glucose,Whole Blood 212 mg/dL (75-99)
[2017-01-07] MEDS ORDERED: INSULIN LISPRO (humaLOG) 300 UNIT/3 ML VIAL SQ SCH (12:30)
--- NOTE | 2017-01-07 13:39 | P.PN ---
Subjective Principal diagnosis: Acute septic shock secondary to cellulitis of the left lower extremity and abdominal wall. This is a 71-year-old female who is quite familiar to my service, patient is known to have history of recurrent episodes of cellulitis, urinary tract infections, and recurrent episodes of sepsis requiring ICU admission, at times patient responded to fluid boluses, and at times patient required fluid boluses plus pressors to maintain an adequate blood pressure. Often she even required Solu-Cortef for relative adrenal insufficiency presentation, and the patient is frequently in the hospital for similar episodes in the past. This time the patient presented to the ER by EMS complaining of not feeling well, admitting to having fatigue, fever, and denied any shortness of breath, no chest pain, no nausea no vomiting no abdominal pain. Patient is known to have chronic lymphedema and cellulitis of left lower extremity, and chronic cellulitis of the right lower extremity. Upon presentation, patient was noted to have elevated potassium of 6.4, elevated lactic acid of 3.9 and follow-up lactic acid was 4.9 follow-up was 4.7 and this is in spite of of fluid boluses given upon presentation. Her urinalysis was relatively unremarkable. And her troponin was relatively normal. Hypotension did not respond to fluid boluses, hence the patient was placed on norepinephrine, and presently she is on 8 g of norepinephrine. Her WBC count jumped from 9.2 on admission to 16.9 today. Her polymorphonuclear went up from 8.5-15.8. Patient was reevaluated today on 01/07/2017, patient received significant fluid boluses over the last 24 hours, she was treated with norepinephrine, however she has been off norepinephrine for the last 5 hours before my evaluation. She seems to be hemodynamically stable, urine output seems to be marginal, and the patient will receive more fluid boluses today. We'll keep her off norepinephrine if her blood pressure remains stable. In the meantime we will keep the patient on her present course of antibiotics, steroids, however the dose of Solu-Cortef will be cut down to 50 mg every 8 hours. Clinically the patient is feeling better, denies any shortness of breath no cough no wheezing no nausea no vomiting no abdominal pain. WBC count is improving down to 13.6. Basic metabolic profile is normal potassium is low at 3.3. Renal profile is normal. The blood cultures are negative so far. However the abdominal wound is showing gram-negative bacilli, final identification is pending. Objective - Vital Signs Vital signs: Vital Signs Temp 97.7 F 01/07/17 08:00 Pulse 88 01/07/17 09:00 Resp 16 01/07/17 09:00 BP 105/56 01/07/17 09:00 Pulse Ox 96 01/07/17 07:54 Intake & Output 01/06/17 01/07/17 01/07/17 18:59 06:59 18:59 Intake Total 3485.929 9660.188 255 Output Total 610 1169 250 Balance 721.937 494.188 5 Weight 108.8 kg Intake: IV 875.0 1412.5 250 Magnesium Sulfate-D5w Pmx 100 1 gm In Dextrose/Water 1 100ml.bag @ 100 mls/hr IVPB Q1H [facility] Rx#: [id number] Meropenem 1 gm In Sodium 100 100 Chloride 0.9% 100 ml @ 100 mls/hr IVPB Q8HR [facility] Rx#:[id number] Piperacillin-Tazobactam 3 75.0 12.5 .375 gm In Dextrose/Water 1 50ml.bag @ 12.5 mls/hr IVPB Q8HR [facility] Rx#: [id number] Sodium Chloride 0.9% 1, 700 1300 150 000 ml @ 100 mls/hr IV . Q10H [facility] Rx#:[id number] Intake, IV Titration 456.937 250.688 5 Amount Norepinephrin 4 mg-0.9% 456.937 250.688 5 Ns Pmx 4 mg In 250 ml @ Titrate IV .Q0M [facility] Rx#: [id number] Output: Drainage 150 480 165 Left Lateral Abdomen 150 480 165 Urine 460 689 85 Other: Voiding Method Indwelling Catheter Indwelling Catheter Indwelling Catheter - Exam Physical Exam: Revealed a 71-year-old female in no distress. HEENT:[Neck is supple.] [No neck masses.] [No thyromegaly.] [No JVD.] Chest: [Clear throughout, no crackles, no rhonchi, no wheezes.] Cardiac Exam: [Normal S1 and S2, no S3 gallop, no murmur.] Abdomen: [Soft, nontender, no megaly, no rebound, no guarding, normal bowel sounds.] Significant cellulitis of the abdominal wall in the area of the left lower quadrant, and yellow fluid seems to be losing from the abdominal wall being collected into a bag. Extremities: [Lymphedema and cellulitis of the left lower extremity was noted, cellulitis of the distal right lower extremity was also noted. The right lower extremity rash seems to be mild..] Neurological Exam: [No focal neurologic deficit.] - Labs CBC & Chem 7: 01/07/17 04:50 01/07/17 04:50 Labs: Abnormal Lab Results - Last 24 Hours (Table) 01/07/17 01/07/17 01/07/17 Range/Units 04:50 04:50 11:57 WBC 13.6 H (3.8-10.6) k/uL MCHC 29.1 L (31.0-37.0) g/dL RDW 17.7 H (11.5-15.5) % Neutrophils # 12.9 H (1.3-7.7) k/uL Lymphocytes # 0.2 L (1.0-4.8) k/uL Sodium 136 L (137-145) mmol/L Potassium 3.3 L (3.5-5.1) mmol/L Chloride 110 H (98-107) mmol/L Carbon Dioxide 19 L (22-30) mmol/L BUN 23 H (7-17) mg/dL Glucose 223 H (74-99) mg/dL POC Glucose (mg/dL) 212 H (75-99) mg/dL Calcium 7.3 L (8.4-10.2) mg/dL Microbiology - Last 24 Hours (Table) 01/05/17 20:46 Blood Culture - Preliminary Blood No Growth after 24 hours Assessment and Plan Plan: Impression: 1 acute septic shock secondary to cellulitis. Skin cultures/Gram stain positive for gram negatives bacilli and blood cultures are pending. 2 history of recurrent urinary tract infections, cultures are pending. 3 chronic lymphedema of lower extremities especially left lower extremity. And the abdominal wall in the left lower quadrant. 4 history of sacral decubitus ulcer. 5 history of C. 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 14 history of adrenal insufficiency Recommendation: Continue present antibiotics, as per infectious disease on the case,, patient is presently on Levaquin and Zosyn and daptomycin. Continue fluids, off norepinephrine for now, cut down the dose of Solu-Cortef to 50 mg IV push every 8 hours, and we'll continue to follow. If the patient remains hemodynamically stable, may consider transferring the patient to a regular medical floor sometime today. Time with Patient: Less than 30
[2017-01-07] MEDS ORDERED: FUROSEMIDE 10 MG/ML 2 ML VIAL IV STA (15:27)
[2017-01-07] MEDS ORDERED: HYDROCORTISONE SUCCINATE 100 MG/2 ML VIAL IV SCH (16:00)
--- NOTE | 2017-01-07 16:01 | DS ---
DATE OF ADMISSION: 01/05/2017 DATE OF DISCHARGE: Patient is a 71-year-old admitted with septic shock requiring Levophed secondary to left lower limb cellulitis. Patient has had multiple admissions for sepsis and patient's functionality is extremely poor. She is definitely appropriate for hospice. Her guardian called us and she made a decision that patient needs to be hospice. Because of that, I had an extensive discussion with the patient today regarding her overall goals of care. After discussing with the patient, plan is to discharge the patient without antibiotics, and patient will be initiated on hospice. Guardian will discuss with the patient regarding further goals of care again one more time before she actually becomes hospice. I am not changing any medications at this point of time. I will not make any changes to her home medications at this point of time except that she is not being continued on antibiotics that she is getting here. Patient will be additionally given Roxanol and Ativan for comfort purposes, although patient is not uncomfortable. Please refer to my dictation of H&P for further details of hospital management here. Patient will be discharged back to [facility] with hospice. Please refer to my depart summary for further details of discharge medications. Spent greater than 35 minutes in total discharge process. Patient was seen and examined on the day of discharge. Vitals are stable. Morbidly obese. Alert and oriented x3. DERMATOLOGIC: Unchanged compared to yesterday. Left lower limb lymphedema unchanged compared to yesterday.
[2017-01-07 16:47] VITALS: BP 101/50; PULSE 101; RESP 17
--- NOTE | 2017-01-07 18:30 | P.PN ---
Subjective Principal diagnosis: Fever and sepsis 71-year-old female who is well-known to the infectious disease service or she's had hospitalization for multiple bouts of left leg cellulitis with sepsis as well as urinary tract infections. She has been on intermittent chronic antibiotic suppressive therapy with cefuroxime to prevent further bouts of the cellulitis and sepsis from the lower extremity and the left. As related she had a injury, delivery of her son which resulted in the chronic lymphedema to the left limb. This resulted in the multiple bouts of cellulitis and sepsis ensued. Consequently chronic antibiotic therapy has been utilized and she has been somewhat better. However she does have dementia. Multiple urinary tract infections do continue to occur. 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 The patient presents from extended care facility because she started to feel poorly. Having increasing fever and chill and generalized malaise. With her bouts of multiple sepsis in the past she was sent to the emergency center. There she had evidence of hypotension has received resuscitation and was admitted to the intensive care unit for her sepsis. Receiving vasopressor therapy for her sepsis. A new finding has been of the extensive lymphedema drainage from a opening onto the left lower lateral flank area. An ostomy pouches been applied which is collecting a large amount of the lymphedema fluid. It is helping her skin stay dry in the area though. She is feeling somewhat better. Ate well today Her pain is about at baseline. The patient has been seen by the primary team. Discussions occurred with the guardian. Objective - Vital Signs Vital signs: Vital Signs Temp 97.7 F 01/07/17 12:00 Pulse 101 H 01/07/17 16:45 Resp 17 01/07/17 16:45 BP 101/50 01/07/17 16:45 Pulse Ox 91 L 01/07/17 16:45 Intake & Output 01/06/17 01/07/17 01/07/17 18:59 06:59 18:59 Intake Total 0931.165 3325.188 1755 Output Total 610 1169 605 Balance 721.937 061.262 5619 Weight 108.8 kg Intake: IV 875.0 1412.5 1750 Magnesium Sulfate-D5w Pmx 100 1 gm In Dextrose/Water 1 100ml.bag @ 100 mls/hr IVPB Q1H [facility]CLUDES [facility] Rx#: [id number] Meropenem 1 gm In Sodium 100 100 Chloride 0.9% 100 ml @ 100 mls/hr IVPB Q8HR [facility] Rx#:[id number] Piperacillin-Tazobactam 3 75.0 12.5 .375 gm In Dextrose/Water 1 50ml.bag @ 12.5 mls/hr IVPB Q8HR [facility] Rx#: [id number] Sodium Chloride 0.9% 1, 700 1300 1650 000 ml @ 100 mls/hr IV . Q10H [facility] Rx#:[id number] Intake, IV Titration 456.937 250.688 5 Amount Norepinephrin 4 mg-0.9% 456.937 250.688 5 Ns Pmx 4 mg In 250 ml @ Titrate IV .Q0M [facility] Rx#: [id number] Output: Drainage 150 480 405 Left Lateral Abdomen 150 480 405 Urine 460 689 200 Other: Voiding Method Indwelling Catheter Indwelling Catheter Indwelling Catheter - Exam 71-year-old female who appears to be in no distress at this point in time. Seems to be somewhat improved from the time of her admission. However is still hypotension requiring vasopressor therapy that is being titrated down HEENT: Anicteric conjunctiva are pink and moist nasal mucosa grossly intact without significant lesions, there is no thrush. Neck: The neck is supple without significant lymphadenopathy or thyromegaly. Lungs: Good bilateral air entry without significant crackles or wheezing. There is no significant bronchial sounds. There is no egophony or dullness. Heart: Regular rate and rhythm with an audible S1-S2, no S3 no S4. There is no significant murmur click or rub, PMI was nondisplaced. Abdomen: Obese, Positive bowel sounds soft and nontender without palpable masses or organomegaly. There was no guarding or rebound. Extremities: Left arm at site of prior IVs without difficulty. The right arm was without difficulties. The right leg is without difficulties. The left lower extremity has the chronic lymphedema. There is the chronic edema. There is minimal erythema and minimal warmth the limb. There is minimal erythema to the lower abdominal wall contiguous with the thigh. Has evidence of the opening with the drainage of the gross amount of the lymph fluid from that left lateral flank area. The ostomy pouches in place collecting the high-volume of the lymph fluid. This is helping her skin with less irritation since is not so moist. The erythema does not seem to be considerably different than baseline. She has mild edema and minimal redness to the right lower extremity also about her baseline. Neuro: Awake alert oriented to person place and time. There are no acute new gross focal sensory motor deficits. She is nearly blind though. - Labs CBC & Chem 7: 01/07/17 04:50 01/07/17 04:50 Labs: Abnormal Lab Results - Last 24 Hours (Table) 01/07/17 01/07/17 01/07/17 Range/Units 04:50 04:50 11:57 WBC 13.6 H (3.8-10.6) k/uL MCHC 29.1 L (31.0-37.0) g/dL RDW 17.7 H (11.5-15.5) % Neutrophils # 12.9 H (1.3-7.7) k/uL Lymphocytes # 0.2 L (1.0-4.8) k/uL Sodium 136 L (137-145) mmol/L Potassium 3.3 L (3.5-5.1) mmol/L Chloride 110 H (98-107) mmol/L Carbon Dioxide 19 L (22-30) mmol/L BUN 23 H (7-17) mg/dL Glucose 223 H (74-99) mg/dL POC Glucose (mg/dL) 212 H (75-99) mg/dL Calcium 7.3 L (8.4-10.2) mg/dL Microbiology - Last 24 Hours (Table) 01/05/17 20:46 Blood Culture - Preliminary Blood No Growth after 24 hours Laboratory Results WBC 13.6 k/uL (3.8-10.6) H 01/07/17 04:50 RBC 4.49 m/uL (3.80-5.40) 01/07/17 04:50 Hgb 12.4 gm/dL (11.4-16.0) 01/07/17 04:50 Hct 42.7 % (34.0-46.0) 01/07/17 04:50 MCV 95.0 fL (80.0-100.0) 01/07/17 04:50 MCH 27.6 pg (25.0-35.0) 01/07/17 04:50 MCHC 29.1 g/dL (31.0-37.0) L 01/07/17 04:50 RDW 17.7 % (11.5-15.5) H 01/07/17 04:50 Plt Count 276 k/uL (150-450) 01/07/17 04:50 Neutrophils % 95 % 01/07/17 04:50 Neutrophils % (Manual) 58.0 % 01/06/17 04:52 Band Neutrophils % 35.5 % 01/06/17 04:52 Lymphocytes % 2 % 01/07/17 04:50 Lymphocytes % (Manual) 3.0 % 01/06/17 04:52 Monocytes % 3 % 01/07/17 04:50 Monocytes % (Manual) 2.5 % 01/06/17 04:52 Eosinophils % 0 % 01/07/17 04:50 Eosinophils % (Manual) 0.5 % 01/06/17 04:52 Basophils % 0 % 01/07/17 04:50 Metamyelocytes % 0.5 % 01/06/17 04:52 Neutrophils # 12.9 k/uL (1.3-7.7) H 01/07/17 04:50 Neutrophils # (Manual) 15.8 k/uL (1.3-7.7) H 01/06/17 04:52 Lymphocytes # 0.2 k/uL (1.0-4.8) L 01/07/17 04:50 Lymphocytes # (Manual) 0.5 k/uL (1.0-4.8) L 01/06/17 04:52 Monocytes # 0.4 k/uL (0-1.0) 01/07/17 04:50 Monocytes # (Manual) 0.4 k/uL (0-1.0) 01/06/17 04:52 Eosinophils # 0.0 k/uL (0-0.7) 01/07/17 04:50 Eosinophils # (Manual) 0.1 k/uL (0-0.7) 01/06/17 04:52 Basophils # 0.0 k/uL (0-0.2) 01/07/17 04:50 Nucleated RBCs 0 /100 WBC (0-0) 01/06/17 04:52 Manual Slide Review Performed 01/06/17 04:52 Polychromasia Present 01/05/17 17:05 Hypochromasia Marked 01/07/17 04:50 Poikilocytosis (manual Present 01/06/17 04:52 Anisocytosis Slight 01/07/17 04:50 Anisocytosis (manual) Present 01/06/17 04:52 Macrocytosis Slight 01/06/17 04:52 PT 11.5 sec (9.0-12.0) 01/05/17 17:05 INR 1.2 (<1.1) 01/05/17 17:05 APTT 22.6 sec (22.0-30.0) 01/05/17 17:05 Sodium 136 mmol/L (137-145) L 01/07/17 04:50 Potassium 3.3 mmol/L (3.5-5.1) L 01/07/17 04:50 Chloride 110 mmol/L (98-107) H 01/07/17 04:50 Carbon Dioxide 19 mmol/L (22-30) L 01/07/17 04:50 Anion Gap 7 mmol/L 01/07/17 04:50 BUN 23 mg/dL (7-17) H 01/07/17 04:50 Creatinine 0.83 mg/dL (0.52-1.04) 01/07/17 04:50 Est GFR (MDRD) Af Amer >60 (>60 ml/min/1.73 sqM) 01/07/17 04:50 Est GFR (MDRD) Non-Af >60 (>60 ml/min/1.73 sqM) 01/07/17 04:50 Glucose 223 mg/dL (74-99) H 01/07/17 04:50 POC Glucose (mg/dL) 212 mg/dL (75-99) H 01/07/17 11:57 POC Glu Spray Booth Operator DARIEL Keaton Smith 01/07/17 11:57 Plasma Lactic Acid Deandre 4.7 mmol/L (0.7-2.0) H* 01/06/17 04:52 Calcium 7.3 mg/dL (8.4-10.2) L 01/07/17 04:50 Phosphorus 4.1 mg/dL (2.5-4.5) 01/07/17 04:50 Magnesium 2.1 mg/dL (1.6-2.3) 01/07/17 04:50 Total Bilirubin 0.5 mg/dL (0.2-1.3) 01/05/17 17:05 AST 31 U/L (14-36) 01/05/17 17:05 ALT 24 U/L (9-52) 01/05/17 17:05 Alkaline Phosphatase 78 U/L (38-126) 01/05/17 17:05 Troponin I <0.012 ng/mL (0.000-0.034) 01/06/17 00:51 Total Protein 5.0 g/dL (6.3-8.2) L 01/05/17 17:05 Albumin 2.3 g/dL (3.5-5.0) L 01/05/17 17:05 Urine Color Yellow 01/05/17 18:55 Urine Appearance Clear (Clear) 01/05/17 18:55 Urine pH 5.5 (5.0-8.0) 01/05/17 18:55 Ur Specific [place] 1.012 (1.001-1.035) 01/05/17 18:55 Urine Protein Negative (Negative) 01/05/17 18:55 Urine Glucose (UA) Negative (Negative) 01/05/17 18:55 Urine Ketones Negative (Negative) 01/05/17 18:55 Urine Blood Negative (Negative) 01/05/17 18:55 Urine Nitrite Negative (Negative) 01/05/17 18:55 Urine Bilirubin Negative (Negative) 01/05/17 18:55 Urine Urobilinogen <2.0 mg/dL (<2.0) 01/05/17 18:55 Ur Leukocyte Esterase Negative (Negative) 01/05/17 18:55 Microbiology 01/05/17 17:05 Abdomen Gram Stain - Preliminary 01/05/17 17:05 Abdomen Wound Culture - Preliminary Acinetobacter toribio/haemol Pseudomonas aeruginosa 01/05/17 18:55 Urine,Catheterized Urine Culture - Final 01/05/17 20:46 Blood Blood Culture - Preliminary No Growth after 24 hours 01/05/17 17:05 Blood Blood Culture - Preliminary No Growth after 24 hours Assessment and Plan (1) Severe sepsis with septic shock Narrative/Plan: 71-year-old woman presents from [facility] facility where she became somewhat acutely ill. She's had this on multiple episodes in the past. She has chronic urinary infections and develops bouts of sepsis related to urinary system. He has also had bouts of sepsis related to the significant cellulitis and lymph angitis to the left leg going to the abdominal wall. Was recently hospitalized for she had evidence of an E. coli that is an ESBL. She is being treated with antibiotic therapy. The had recurrence of her sepsis occurring a relatively short period time since her recent hospital stay. Concern that the ESBL E. coli could be part of the difficulty. Constantly will change the Zosyn to meropenem until we have some further data. Daptomycin is being utilized for her cellulitis process and lymphangitis to the left flank area. The current pouches in place may be converted to a urostomy pouch with urostomy bag when this needs to be changed we will hold a much higher volume in the small bag it's been applied. It is distinctly helping her skin though. Urine and blood cultures are pending. Does not appear to have pneumonia Her vasopressor therapy is being weaned and has had adequate fluid resuscitation. Very high lactic acidosis is improved Patient physically feels a bit better today. However she is quite upset. Conversation is occurred between her guardian and the care team. It is becoming evident that she is not recovering from her multiple infections and having significant decline of her status. Constantly the guardian believe she should be placed in hospice. Attempts are being made for that to occur at this time. Does have the culture with Acinetobacter and Pseudomonas which is being only partially treated with meropenem at this time. With transition to hospice would not need further intravenous antibiotic therapy. Status: Acute
[2017-01-08] MEDS ORDERED: CALCITRIOL 0.25 MCG CAP PO SCH (09:00)
[2017-01-12] MEDS ORDERED: ERGOCALCIFEROL 50,000 UNIT CAP PO SCH (09:00)
== END 2017-01-07 19:03 | disposition hospice, inpatient (51) | DRG 871 ==
LOC: EEVIPCON 16:55 → EC 16:55 → 6SEL 19:10 → 6ICU 23:36
PROVIDERS: ADMIT Internal Medicine; ATTEND Internal Medicine
DX: A41.9 Sepsis, unspecified organism (principal); R65.21 Severe sepsis with septic shock; E87.2 Acidosis; E27.40 Unspecified adrenocortical insufficiency; I48.0 Paroxysmal atrial fibrillation; F03.90 Unspecified dementia, unspecified severity, without behavioral disturbance, psychotic disturbance, mood disturbance, and anxiety; E87.1 Hypo-osmolality and hyponatremia; G25.81 Restless legs syndrome; L03.116 Cellulitis of left lower limb; L03.311 Cellulitis of abdominal wall; Z68.42 Body mass index [BMI] 45.0-49.9, adult; Z66 Do not resuscitate; E66.01 Morbid (severe) obesity due to excess calories; Z51.5 Encounter for palliative care; N18.2 Chronic kidney disease, stage 2 (mild); I89.0 Lymphedema, not elsewhere classified; I73.9 Peripheral vascular disease, unspecified; E03.9 Hypothyroidism, unspecified; F32.9 Major depressive disorder, single episode, unspecified; H54.8 Legal blindness, as defined in USA; M10.9 Gout, unspecified; M19.91 Primary osteoarthritis, unspecified site; K21.9 Gastro-esophageal reflux disease without esophagitis; Z86.14 Personal history of Methicillin resistant Staphylococcus aureus infection; Z87.440 Personal history of urinary (tract) infections; Z88.1 Allergy status to other antibiotic agents; Z86.19 Personal history of other infectious and parasitic diseases; Z79.2 Long term (current) use of antibiotics; Z79.01 Long term (current) use of anticoagulants; Z79.899 Other long term (current) drug therapy
CPT/HCPCS: 36415; 71010; 71020; 80048; 80053; 81003; 83605; 83735; 84100; 84484; 85025; 85610; 85730; 87040; 87070; 87077; 87086; 87186; 87205; 93005; 94640